=== PATIENT | female | born 1965 | race Caucasian/White ===

== ENCOUNTER → 2020-08-09 13:36 | Outpatient (CLI) | payer BC, SELFPAY ==
--- NOTE | ~2020-08-09 | US_ITS ---
EXAMINATION: US venous doppler [facility] EXAM DATE: 08/09/2020 14:05 INDICATION: Left leg pain, swelling. TECHNIQUE: Multiple grayscale, color flow and Doppler images of the left lower extremity deep venous system were obtained and reviewed. There is no prior study for comparison. FINDINGS: The left common femoral, femoral and profunda veins demonstrate normal color flow, respirat ory variation, augmentation and compressibility. Compressibility, color flow confirmed within the le ft popliteal, posterior tibial, peroneal, and greater saphenous veins. IMPRESSION: 1. No left lower extremity deep venous thrombosis. Reviewed, dictated and finalized at location A.
== END ==
PROVIDERS: PCP Internal Medicine; Visit Provider Internal Medicine
DX: R60.0 Localized edema (principal)
CPT/HCPCS: 93971

== ENCOUNTER 2020-10-14 05:38 | Emergency (ER) | payer BC, SELFPAY ==
--- NOTE | ~2020-10-14 | XR_ITS ---
XR chest 1V portable 10/14/2020 06:34 Indication: Shortness of breath Procedure: AP portable chest Comparison: No prior studies for comparison. Findings: Heart size normal. No focal air space disease, pulmonary edema, pleural effusion or suspect ed pneumothorax. Impression: 1: No acute cardiopulmonary disease. Reviewed, dictated and finalized at location A. ICATIONS INTERN Impression: 1: No acute cardiopulmonary disease.
[2020-10-14 05:43] VITALS: BP 114/80; PULSE 100; RESP 20; TEMP 36.3; O2SAT 98
--- NOTE | 2020-10-14 06:10 | ED.GENADULT ---
HPI - General Adult General Chief complaint: Unspecified Stated complaint: possible pneumonia & kidney stone, covid + Time Seen by Provider: 10/14/20 05:58 History of Present Illness HPI narrative: Tested positive for covid-19 1 week ago and she does nt feel any better. Earnest has a cough, and feels short of breath. She also has back pain, which seems to be chronic, but is worse. She has some pain with urination. Related Data Home Medications Medication Instructions Recorded Confirmed levothyroxine [Synthroid] 10/14/20 lorazepam 10/14/20 Allergies Allergy/AdvReac Type Severity Reaction Status Date / Time No Known Allergies Allergy Verified 10/14/20 06:37 Review of Systems Review of Systems: All systems reviewed & are unremarkable except as noted in HPI and below Constitutional: Constitutional: Reports body ache(s) and Reports chills Cardiovascular: Cardiovascular: Reports chest pain Respiratory: Respiratory: Reports cough and Reports dyspnea Gastrointestinal: Gastrointestinal: Reports nausea Genitourinary: Genitourinary: Denies hematuria, Reports nocturia and Reports dysuria Musculoskeletal: Musculoskeletal: Reports back pain Neurologic: Reports dizziness PMFSH Past Medical History Medical History (Updated 10/14/20 @ 06:56 by Ramez Hardy MD) COVID-19 Hypothyroid Social History Social History (Updated 10/14/20 @ 06:19 by Ramez Hardy MD) Smoking status: Never smoker Exam Const: General: healthy appearing, alert and awake; No acute distress Nutritional Appearance: well nourished Orientation/consciousness: patient oriented x3 Limitations: no limitations HENMT: Head: normal to inspection Neck: Neck: normal visual inspection Resp: Effort & Inspection: normal respiratory effort and able to speak in complete sentences Skin: General skin exam: normal color Neuro: General: patient oriented x3 Cognition (Neuro): normal cognition Speech: normal speech Gait exam (Neuro): Normal gait present Extrem: General: normal to inspection Psych: Affect: Anxious affect present Course Vital Signs Vital signs: Vital Signs Temperature 36.3 C L 10/14/20 05:43 Pulse Rate 100 10/14/20 05:43 Respiratory Rate 20 10/14/20 05:43 Blood Pressure 114/80 10/14/20 05:43 Pulse Oximetry 98 10/14/20 05:43 Temperature 36.3 C L 12/06/20 05:43 Pulse Rate 100 10/14/20 05:43 Respiratory Rate 20 10/14/20 05:43 Blood Pressure 114/80 10/14/20 05:43 Pulse Oximetry 98 10/14/20 05:43 Medical Decision Making MDM Narrative Medical decision making narrative: She appears well and seems to have very mild symptoms. I will do a chest x-ray, UA, and give toradol Vital Signs Vital Signs: Vital Signs Temperature 36.3 C L 10/14/20 05:43 Pulse Rate 100 10/14/20 05:43 Respiratory Rate 20 10/14/20 05:43 Blood Pressure 114/80 10/14/20 05:43 Pulse Oximetry 98 10/14/20 05:43 Temperature 36.3 C L 10/14/20 05:43 Pulse Rate 100 10/14/20 05:43 Respiratory Rate 20 10/14/20 05:43 Blood Pressure 114/80 10/14/20 05:43 Pulse Oximetry 98 10/14/20 05:43 Lab Data Labs: Lab Results 10/14/20 Range/Units 06:27 Urine Color Yellow (Yellow) Urine Appearance Clear (Clear) Urine pH 5.0 (5.0-9.0) Ur Specific [place] 1.018 (1.001-1.035) Urine Protein Negative (Negative) mg/dL Urine Glucose (UA) Negative (Negative) mg/dL Urine Ketones Negative (Negative) mg/dL Ur Blood (Man) Negative (Negative) Urine Nitrate Negative (Negative) Urine Bilirubin Negative (Negative) Urine Urobilinogen Negative (<2.0) mg/dL Leukocyte Esterase Rfl Negative (Negative) LYNNE/UL Urine RBC 3-5 H (0-2) /hpf Urine WBC 16-20 H /hpf Ur Squamous Epith Cells Occasional (Few) /hpf Urine Mucus Moderate H /lpf Urine Characteristics Clear Discharge Plan Discharge
[2020-10-14] MEDS: KETOROLAC (*BKC) 60 MG/2 ML VIAL IM (06:21)
[2020-10-14 06:37] LABS: Add Urine Microscopic? YES; Appearance Urine Clear (Clear); Bilirubin Urine Negative (Negative); Color Urine Yellow (Yellow); Glucose Urine UA Negative (Negative); Ketones Urine Negative (Negative); Leukocyte Esterase Ur Negative LEU/UL (Negative); Mucus Urine Moderate /lpf; Nitrate Urine Negative (Negative); Protein Urine Negative (Negative); Specific Grav Ur 1.018 (1.001-1.035); Squamous Epithelial Cell Urine Occasional /hpf (Few); Urobilinogen Urine Negative mg/dL (<2.0); WBC Urine 16-20 /hpf
[2020-10-14 06:44] LABS: Blood Urine Negative (Negative)
[2020-10-14] MEDS: PHENAZOPYRIDINE HCL 100 MG TABLET 200 MG PO (06:56)
[2020-10-14] MEDS: NITROFURANTOIN MONOHYD MACROCR 100 MG CAP PO (06:56)
[2020-10-14] MEDS: DEXAMETHASONE 2 MG TABLET 6 MG PO (07:07)
== END 2020-10-14 07:08 | disposition home or self-care (01) ==
PROVIDERS: Emergency Provider Emergency Medicine; PCP Internal Medicine
DX: U07.1 COVID-19 (principal); J12.89 Other viral pneumonia; N30.00 Acute cystitis without hematuria; E03.9 Hypothyroidism, unspecified
CPT/HCPCS: 71045; 81001; 87077; 87086; 87088; 87186; 96372; 99283; A9270; J1885; J8540

== ENCOUNTER 2024-06-14 05:52 | Day surgery (SDC) | payer OTHER, SELFPAY ==
[2024-03-29 11:35] VITALS: BMI 34.8
[2024-06-07 12:12] VITALS: BMI 31.8
--- NOTE | 2024-06-07 12:46 | PM.HPGS ---
History of Present Illness History of Present Illness Consent: Risks, benefits, and alternatives have been discussed and questions answered. Patient agrees to proceed with procedure. Chief complaint: History of colon polyps Narrative: Meeta Das is a 58 year old female Referred for Colonoscopy due to a history of polyps. She had an adenoma removed 6 years ago. Review of Systems Review of Systems: All systems reviewed & are unremarkable except as noted in HPI and below PMFSH Past Medical History Medical History COVID-19 Hypothyroid Social History Social History Smoking status: Never smoker Alcohol intake: current Substance use: never Substance use type: does not use Living arrangements: with family Spiritual care concerns: No Meds Home Medications and Allergies Home Medications Medication Instructions Recorded Confirmed Type levothyroxine 112 mcg tablet 112 mcg PO DAILY 10/14/20 06/14/24 History (Synthroid) Allergies Allergy/AdvReac Type Severity Reaction Status Date / Time No Known Allergies Allergy Verified 06/14/24 06:15 Exam Const: General: alert Orientation/consciousness: patient oriented x3 Resp: Auscultation: clear to auscultation bilaterally Cardio: Rate: regular rate Rhythm: regular rhythm GI: GI Palp: Yes Soft to palpation and No Tenderness to palpation present (GI) Neuro: General: patient oriented x3 Assessment and Plan Assessment and plan (1) Personal history of colonic polyps: Code(s): Z86.010 - Personal history of colonic polyps Status: Acute Assessment and Plan: Colonoscopy with possible biopsy or polypectomy or cautery or injection of substances.
--- NOTE | 2024-06-13 16:42 | P.PNAN_ITS ---
Anes - Initial Pre Proc Eval Procedure: Operation Date: 06/14/24 07:30 Proposed Procedures p Diagnostic Colonoscopy - Alessio Irvin MD Date/Time: 06/13/24 16:42 Surgeon: Alessio Irvin MD Pre Op Diagnosis: History of colon polyps Patient Data Age: 58 Gender: F Height: 1.73 m Weight: 95 kg Allergies Allergy/AdvReac Type Severity Reaction Status Date / Time No Known Allergies Allergy Verified 06/14/24 06:15 Home Medications Medication Instructions Recorded Confirmed Type levothyroxine 112 mcg tablet 112 mcg PO DAILY 10/14/20 06/14/24 History (Synthroid) Patient hx anesthesia problems: none Family hx anesthesia problems: none Results Review: All pre-operative results and documents have been reviewed as part of the pre- operative evaluation. [facility] Past Medical History Medical History (Updated 06/07/24 @ 12:47 by Alessio Irvin MD) COVID-19 Hypothyroid Social History Social History (Updated 10/14/20 @ 06:19 by Ramez Hardy MD) Smoking status: Never smoker Alcohol intake: current Substance use: never Substance use type: does not use Living arrangements: with family Spiritual care concerns: No Anes - Eval Final PreProcedure Day of Procedure 06/13/24 16:42 Patient weight: obese Heart: regular rate and rhythm Lungs: clear to auscultation Airway: Mallampati scale class II Neurological: alert and oriented Last oral intake: >/= 8 hours ASA classification: II Emergent: no Anesthetic plan: proceed Anesthesia type and monitoring: general GIVS and standard monitoring Results Review: All pre-operative results and documents have been reviewed as part of the pre- operative evaluation. Informed Consent: The patient's anesthetic plan and its attendant risks and benefits were discussed with the patient/family/POA. Questions were solicited and answers provided to the satisfaction of the patient/family/POA.
[2024-06-14 06:16] VITALS: BP 115/70; PULSE 72; RESP 15; TEMP 36.6; O2SAT 97
[2024-06-14] MEDS: LACTATED RINGERS 1,000 ML 150 ML IV CONT (06:19)
[2024-06-14 07:36] VITALS: BP 100/59; PULSE 63; RESP 16; O2SAT 98
[2024-06-14 07:46] VITALS: BP 111/69; PULSE 53; RESP 15; O2SAT 97
[2024-06-14 07:56] VITALS: BP 124/70; PULSE 55; RESP 15; O2SAT 100
--- NOTE | 2024-06-14 11:10 | WPDANESPN ---
Anes - Prog Note Post-Op Date/Time: 06/14/24 11:10 Cardiovascular status: normal Respiratory status: normal Airway patency: baseline Mental status: baseline Post-Op hydration status: normal Vital Signs: Last Vital Signs Temp 36.6 C 06/14/24 06:16 Pulse 55 L 06/14/24 07:56 Resp 15 06/14/24 07:56 BP 124/70 06/14/24 07:56 Pulse Ox 100 06/14/24 07:56 O2 Del Method Room Air 06/14/24 07:56 Pain Score (VAS): 0 I/O: Intake & Output 06/13/24 06/14/24 06/14/24 23:59 07:59 15:59 Intake Total 800 Balance 800 Post-procedural complaints: none Patient Feedback: Patient satisfied with anesthetic care. Other Findings: Patient vital signs back to baseline. Patient denies nausea and vomiting. Patient's pain under control. Patient OK for discharge.
== END 2024-06-14 08:12 | disposition home or self-care (01) ==
PROVIDERS: PCP Internal Medicine; Visit Provider Internal Medicine Gastroenterology
PROC: 0DJD8ZZ Inspection of Lower Intestinal Tract, Via Natural or Artificial Opening Endoscopic (ICD-10-PCS; CPT 45378; principal; 2024-06-14 07:30)
DX: Z86.010 Personal history of colon polyps (principal); Z12.11 Encounter for screening for malignant neoplasm of colon
CPT/HCPCS: 45378

== ENCOUNTER 2024-10-22 11:51 | Emergency (ER) | payer OTHER, SELFPAY ==
[2024-10-22 12:12] VITALS: BP 135/81; PULSE 63; RESP 20; TEMP 36.2; O2SAT 100
--- NOTE | 2024-10-22 12:20 | ED.GENADULT ---
HPI - General Adult General Chief complaint: Upper Respiratory Infection Stated complaint: sore throat Time Seen by Provider: 10/22/24 12:20 Source: patient Mode of arrival: ambulatory History of Present Illness HPI narrative: 59-year-old female patient presents to the [facility] with complaints of a sore throat for the past 2-3 days. Patient states she has had some cough and congestion symptoms for the past week. Patient states she has tried [id number] Mucinex and cough syrup for symptoms. Denies fevers, body aches or chills. Denies any ear pain. Denies any chest pain or shortness of breath. Related Data Home Medications ?Medication ?Instructions ?Recorded ?Confirmed ?Last Taken ?Type levothyroxine 112 mcg tablet 112 mcg PO DAILY 10/14/20 06/14/24 06/14/24 04:30 History (Synthroid) Allergies Allergy/AdvReac Type Severity Reaction Status Date / Time No Known Allergies Allergy Verified 06/14/24 06:15 Review of Systems Review of Systems: CONSTITUTIONAL: Denies fever, chills, or sweats. EYES: Denies visual changes, redness, or discharge. ENT: Denies rhinorrhea, congestion, sore throat, or otalgia. CARDIOVASCULAR: Denies chest pain, palpitations, or edema. RESPIRATORY: Denies cough or dyspnea. GASTROINTESTINAL: Denies abdominal pain, nausea, vomiting, or diarrhea. GENITOURINARY: Denies dysuria or hematuria. SKIN: Denies rash or itching. MUSCULOSKELETAL: Denies back pain, joint pain, or myalgia. NEUROLOGIC: Denies headache, numbness, or weakness. PSYCHIATRIC: Denies anxiety or depression. [facility] Past Medical History Medical History Hypothyroid COVID-19 Social History Social History Smoking status: Never smoker Alcohol intake: current Substance use: never Substance use type: does not use Living arrangements: with family Spiritual care concerns: No Comments At the time of my signature I agree with nursing past medical history, surgical, social, and family history. There is no relevant family history pertinent to the presenting complaint. Exam Narrative: GENERAL: Well-appearing, well-nourished, and in no acute distress. HEAD: Normocephalic, atraumatic. EYES: PERRLA and EOMI. ENT: Nares With erythema edema noted bilaterally, no rhinorrhea or epistaxis. Mucous membranes moist. posterior pharynx with no erythema, tonsillar enlargement, exudates or lesions present. Bilateral TMs are clear no erythema or foreign bodies the canal. NECK: Supple. No lymphadenopathy CHEST: Clear to auscultation. No respiratory distress. HEART: Regular rate and rhythm. No murmur heard. Normal peripheral pulses. ABDOMEN: Soft, nontender, nondistended, normal active bowel sounds. EXTREMITIES: Normal range of motion. No edema. SKIN: Warm, dry, no rash. NEURO: No focal deficits. Alert and oriented x3. Course Course Level of Care: Express Care Visit Vital Signs Vital signs: Vital Signs Temperature 36.2 C L 10/22/24 12:12 Pulse Rate 63 10/22/24 12:12 Respiratory Rate 20 10/22/24 12:12 Blood Pressure 135/81 10/22/24 12:12 Pulse Oximetry 100 10/22/24 12:12 Oxygen Delivery Room Air 10/22/24 12:12 Temperature 36.2 C L 10/22/24 12:12 Pulse Rate 63 10/22/24 12:12 Respiratory Rate 20 10/22/24 12:12 Blood Pressure 135/81 10/22/24 12:12 Pulse Oximetry 100 10/22/24 12:12 Oxygen Delivery Room Air 10/22/24 12:12 Vital signs reviewed. Medical Decision Making MDM Narrative Medical decision making narrative: Plan of care patient is to stop her today for strep if this is negative will encourage her to continue to treat symptoms with [id number] medication, saltwater gargles, tea and honey to help alleviate pain. We will send off a culture if the culture does come back positive we will call her antibiotics at that time. Patient is aware of the plan of care at this time. Differential Diagnosis Differential Diagnosis: Differential diagnosis: Viral pharyngitis, pharyngitis, group A strep, infectious mononucleosis, gonococcal pharyngitis, exudative pharyngitis, oral candidiasis. Chronic allergies, postnasal drip, GERD, abscess formation, but glottitis, retropharyngeal abscess formation, or airway obstruction. Vital Signs Vital Signs: Vital Signs Temperature 36.2 C L 10/22/24 12:12 Pulse Rate 63 10/22/24 12:12 Respiratory Rate 20 10/22/24 12:12 Blood Pressure 135/81 10/22/24 12:12 Pulse Oximetry 100 10/22/24 12:12 Oxygen Delivery Room Air 10/22/24 12:12 Temperature 36.2 C L 10/22/24 12:12 Pulse Rate 63 10/22/24 12:12 Respiratory Rate 20 10/22/24 12:12 Blood Pressure 135/81 10/22/24 12:12 Pulse Oximetry 100 10/22/24 12:12 Oxygen Delivery Room Air 10/22/24 12:12 Critical Care Time Critical Care Time Critical Care Time: No Discharge Plan Discharge Clinical Impression: Viral URI Pharyngitis Qualifiers: Pharyngitis/tonsillitis etiology: unspecified etiology Qualified Code(s): J02.9 - Acute pharyngitis, unspecified Patient Disposition: Home, Self-Care Condition: Stable Instructions: Antibiotic Form, Pharyngitis (ED) Additional Instructions: A sore throat can be caused by an infection from a virus or bacteria. Sore throat can also be caused by postnasal drip, allergies, and exposure to smoke. A viral sore throat last 3-4 days and cannot be treated with antibiotics. One type of sore throat virus, infectious mononucleosis ( mono ), can last for 3 weeks and older children. The germs that cause these infections are contagious and can be spread by coughing or sharing drinks or utensils. Contact her primary care physician or go to the ER if: Your trouble breathing or swallowing because her throat is swollen or sore. You're drooling because it hurts too much to swallow. You're painful lump in your throat go away after 5 days. You're fever is higher than 10 2??F or last longer than 3 days. You have confusion. You are blood in your throat. You're sore throat should feel better within 3-5 days without treatment if it is caused by virus. You may need the following: Ibuprofen or Tylenol as needed for pain or fever Gargle warm salt water Drink more liquids, cold or warm drinks may help soothe her throat. Humidifier in your room. Cough drops, ice, soft foods, or popsicles may help soothe her throat. A spoonful of honey could help with inflammation and soothe her throat. Wash her hands with soap and water, do not share food or drinks, throat away her toothbrush after 72 hours. Patient Language: Japanese Prescriptions: No Action levothyroxine [Synthroid] 112 mcg tablet 112 mcg PO DAILY Follow-up/Referrals: Ramesh,Jefferson Martin MD [Primary Care Provider] - Time of Disposition: 12:41
[2024-10-22 12:53] LABS: EDSTREPNEGPOS1 Negative (Negative)
--- OUTSIDE RECORDS SUMMARY | 2024-10-26 11:28 | XMS_ITS | Data Portability ---
Author Organization [place] [facility] [employer] [facility], Main Office Address [address] [place] [address] Care Team Providers Care Social Media Marketing Manager Name Role Phone JOHN CHANDLER Primary Care Provider JOHN CHANDLER Referring Provider Assessment Encounter Date Assessment Date Assessment LastModified by Organization Details LastModified Time 03/28/2024 03/28/2024 The patient has mild to moderate primary osteoarthritis of the right knee joint she has a lot of subpatellar crepitation with radiating pain to the posterior knee she also has significant narrowing of the medial compartment. We talked about the fact that her pain appears to be from osteoarthritis particularly patellofemoral articulation. We talked about treatment options today in detail we are going to start with a course of oral prednisone she will hold on the leave then resume that. She will modify her activities as tolerated. She was offered a shot of cortisone she wanted proceed therefore under sterile conditions I injected the patient's right knee joint in the office with 4 cc 0.5% bupivacaine and 20 mg of Kenalog. Patient tolerated the procedure well. I will see her back in 6 weeks if her symptoms continue we may consider doing gel shots we will see how she does with simple measures 1st. She voiced understanding agrees above plan she will call for any further problems difficulties or questions. We did review her new x-rays today in detail she does have lateral patellar tilt with overload of the lateral facet and moderate narrowing in the medial compartment of the right knee. Not available 03/28/2024 11:22:23 04/01/2024 04/01/2024 The patient has [id number] primary osteoarthritis both knees. She got excellent relief from an evaluation and a cortisone injection a few days ago for her right knee. She was so pleased she decided to come back to have her left knee injected her right knee had been hurting more than the left she was more focused on the right at that time. At her request under sterile conditions I injected the patient's left knee joint in the office today with 4 cc 0.5% bupivacaine and 20 mg of Kenalog. Patient tolerated procedure well. She will finish out her course of oral prednisone that was prescribed previously I will see her back as needed she voiced understanding agrees above plan she will call for any further problems difficulties or questions. Not available 04/01/2024 14:20:34 05/09/2024 05/09/2024 The patient has mostly resolved bilateral knee pain due to primary osteoarthritis. This is mostly localized to the patellofemoral articulations bilaterally. We talked about avoiding repetitive stairs squatting kneeling etc. anything that puts a heavy load in the back of the kneecap on either knee. If her knee pain flares up again she does have naproxen at home she can take this on a regular basis she stopped taking it because her knees are feeling so good. I will see her back as needed we can do shots of cortisone every 3 months if necessary. She voiced understanding and agrees above plan I will see her back if her knees flare up again she will call for any further problems difficulties or questions. Not available 05/09/2024 10:33:58 07/04/2024 07/04/2024 The patient has moderate primary osteoarthritis both knees particularly in the patellofemoral articulations we talked about treatment options in detail today she wanted proceed with a cortisone and we will switch her to Celebrex 200 mg daily after further discussion. Under sterile conditions I injected both knee joints in the office today with 4 cc 0.5% bupivacaine and 20 mg of Kenalog each. The patient tolerated the procedures well. I will see her back in 3 months if necessary we talked about the possibility of gel shots she is going to think about it she will let us know what she wants to do next time. She voiced understanding and agrees above plan. Not available 07/04/2024 09:12:59 10/10/2024 10/10/2024 The patient has moderately severe primary osteoarthritis particularly in the patellofemoral articulations of both knees we talked about treatment options today we are going to change her medication from Celebrex to Voltaren 75 mg b.i.d. with food see if that helps more. We spent a lot of time today talking about options for her short of knee replacement her x-rays do not show severe osteoarthritis and she is only 59 years old, we talked about formal physical therapy she declined she would rather do a home program she was given exercise sheets for this today. We also talked about knee braces she does have those with the patellar guide brace type braces. We also discussed the possibility of gel shots versus cortisone today she would rather do cortisone once again therefore under sterile conditions I injected the patient's bilateral knee joints in the office with 4 cc 0.5% bupivacaine and 20 mg of Kenalog. Patient tolerated procedures well. I will see her back again in 3 months if necessary. She voiced understanding and agreed with the above plan she will call for any further problems difficulties or questions. We also did talk about weight loss being important currently she is 5 ft 8 in tall 215 lb she knows that if she did lose some weight this would help somewhat with her knee pain particularly with trying to go up and down stairs. Not available 10/10/2024 09:39:05 Plan of Treatment Reminders Order Date Submit Date Provider Last Modified By Organization Details Last Modified Time Details Appointments Any 5 2024 08:00A MARIAM Galan Not available Not available Not available Lab None recorded. Referral None recorded. Procedures injection /aspirati on joint/bur sa (PROC) 2023 024 [email or web address] In-Office Order, Internal Use Only DO Not Attach Compendium DO Not Attach Compendium, Do Not Delete/merge, [id number] 03/28/2024 11:16:28 injection /aspirati on joint/bur sa (PROC) 2023 024 [email or web address] In-Office Order, Internal Use Only DO Not Attach Compendium DO Not Attach Compendium, Do Not Delete/merge, [id number] 04/01/2024 13:54:54 injection /aspirati on joint/bur sa (PROC) 2023 024 [email or web address] In-Office Order, Internal Use Only DO Not Attach Compendium DO Not Attach Compendium, Do Not Delete/merge, [id number] 07/04/2024 08:55:41 injection /aspirati on joint/bur sa (PROC) 2023 024 [email or web address] In-Office Order, Internal Use Only DO Not Attach Compendium DO Not Attach Compendium, Do Not Delete/merge, [id number] 10/10/2024 09:07:13 Surgeries None recorded. Imaging XR, knee 2023 024 [email or web address], [address], [place], [address], 03/28/2024 12:59:18 Medication Orders bupivacai ne HCl 0.5 % (5 mg/mL) injection solution 2023 024 [id number], [address], [address], 03/28/2024 12:59:18 Kenalog 10 mg/mL suspensio n for injection 2023 024 [id number], [address] [place] [address], [address], 03/28/2024 12:59:18 prednison e 10 mg tablets in a dose pack 2023 024 [id number], [address], [address], 03/28/2024 12:59:18 bupivacai ne HCl 0.5 % (5 mg/mL) injection solution 2023 024 [id number], [address] [place] [address], [address], 04/01/2024 16:12:34 Kenalog 10 mg/mL suspensio n for injection 2023 024 [id number], [address] [place] [address], [address], 04/01/2024 16:12:34 bupivacai ne HCl 0.5 % (5 mg/mL) injection solution [address] [id number], [address] [place] [address], [address], 07/04/2024 08:56:30 Kenalog 10 mg/mL suspensio n for injection 2023 024 [id number], [address] [place] [address], [address], 07/04/2024 08:56:30 celecoxib 200 mg capsule [address] [id number], [address] [place] [address], [address], 07/04/2024 09:31:31 bupivacai ne HCl 0.5 % (5 mg/mL) injection solution 2023 024 [email or web address] [id number], [address] [place] [address], [address], 10/10/2024 09:45:35 Kenalog 10 mg/mL suspensio n for injection 2023 024 [email or web address], [address], [address], 10/10/2024 09:45:35 diclofena c sodium 75 mg tablet,de layed release 2023 024 [id number], [address], [address], 10/10/2024 09:45:35 Patient TargetsNo targets recorded. Patient InstructionsNo instructions recorded. Reason for Referral None Reported. Results Created Date Observation Date Name Description Value Unit Range Abnormal Flag Note LastModifiedBy Organization Detail LastModifiedTime 03/10/20 24 03/10/2024 T4 FREE free T4 0.99 NG/dL 0.78-2 .19 Not Available [facility] (Lab) [address] [place], [address], 03/10/2024 18:37:49 03/10/20 24 03/10/2024 CBC/C OMPLE TE BLD COUNT W/DIF F white blood cells 3.3 x10'3 /uL 4.2-10 .8 low Not Available [facility] (Lab) [address] [place], [address], 03/10/2024 18:16:31 03/10/20 24 03/10/2024 CBC/C OMPLE TE BLD COUNT W/DIF F red blood cells 4.29 x10'6 /uL 3.80-5 .20 Not Available [facility] (Lab) [address] [place], [address], 03/10/2024 18:16:31 03/10/20 24 03/10/2024 CBC/C OMPLE TE BLD COUNT W/DIF F hemoglobin 13.2 g/dL 12.0-1 5.6 Not Available [facility] (Lab) [address] [place], [address], 03/10/2024 18:16:31 03/10/20 24 03/10/2024 CBC/C OMPLE TE BLD COUNT W/DIF F hematocrit 37.5 % 35.7-4 5.7 Not Available [facility] (Lab) [address] [place], [address], 03/10/2024 18:16:31 03/10/20 24 03/10/2024 CBC/C OMPLE TE BLD COUNT W/DIF F mean red cell volume 87.4 fL 82.0-9 9.0 Not Available [facility] (Lab) [address] [place], [address], 03/10/2024 18:16:31 03/10/20 24 03/10/2024 CBC/C OMPLE TE BLD COUNT W/DIF F mean red cell hemoglobin 30.8 pg 27.0-3 3.0 Not Available [facility] (Lab) [address] [place], [address], 03/10/2024 18:16:31 03/10/20 24 03/10/2024 CBC/C OMPLE TE BLD COUNT W/DIF F mean RBC HGB concentratio n 35.2 g/dL 31.0-3 6.0 Not Available [facility] (Lab) [address] [place], [address], 03/10/2024 18:16:31 03/10/20 24 03/10/2024 CBC/C OMPLE TE BLD COUNT W/DIF F red cell distribution width 12.4 % 11.8-1 5.5 Not Available [facility] (Lab) [address] [place], [address], 03/10/2024 18:16:31 03/10/20 24 03/10/2024 CBC/C OMPLE TE BLD COUNT W/DIF F platelets 123 x10'3 /uL 150-40 0 low Not Available [facility] (Lab) [address] [place], [address], 03/10/2024 18:16:31 03/10/20 24 03/10/2024 CBC/C OMPLE TE BLD COUNT W/DIF F mean platelet volume 9.6 fL 9.0-12 .4 Not Available [facility] (Lab) [address] [place], [address], 03/10/2024 18:16:31 03/10/20 24 03/10/2024 CBC/C OMPLE TE BLD COUNT W/DIF F neutrophils 48.6 % 39.0-7 2.0 Not Available [facility] (Lab) [address] [place], [address], 03/10/2024 18:16:31 03/10/20 24 03/10/2024 CBC/C OMPLE TE BLD COUNT W/DIF F lymphocytes 34.3 % 16.0-4 7.0 Not Available [facility] (Lab) [address] [place], [address], 03/10/2024 18:16:31 03/10/20 24 03/10/2024 CBC/C OMPLE TE BLD COUNT W/DIF F monocytes 10.5 % 5.0-12 .0 Not Available [facility] (Lab) [address] [place], [address], 03/10/2024 18:16:31 03/10/20 24 03/10/2024 CBC/C OMPLE TE BLD COUNT W/DIF F eosinophils 4.8 % 1.0-7. 0 Not Available [facility] (Lab) [address] [place], [address], 03/10/2024 18:16:31 03/10/20 24 03/10/2024 CBC/C OMPLE TE BLD COUNT W/DIF F basophils 1.5 % 0.0-2. 0 Not Available [facility] (Lab) [address] [place], [address], 03/10/2024 18:16:31 03/10/20 24 03/10/2024 CBC/C OMPLE TE BLD COUNT W/DIF F immature granulocytes 0.3 % 0.00-0 .50 Not Available [facility] (Lab) [address] [place], [address], 03/10/2024 18:16:31 03/10/20 24 03/10/2024 CBC/C OMPLE TE BLD COUNT W/DIF F neutrophils, absolute count 1.61 x10'3 /uL 1.5-8. 0 Not Available [facility] (Lab) [address] [place], [address], 03/10/2024 18:16:31 03/10/20 24 03/10/2024 CBC/C OMPLE TE BLD COUNT W/DIF F lymphocytes, absolute count 1.14 x10'3 /uL 1.07-3 .43 Not Available [facility] (Lab) [address] [place], [address], 03/10/2024 18:16:31 03/10/20 24 03/10/2024 CBC/C OMPLE TE BLD COUNT W/DIF F monocytes, absolute count 0.35 x10'3 /uL 0.29-0 .99 Not Available [facility] (Lab) [address] [place], [address], 03/10/2024 18:16:31 03/10/20 24 03/10/2024 CBC/C OMPLE TE BLD COUNT W/DIF F eosinophils, absolute count 0.16 x10'3 /uL 0.02-0 .53 Not Available [facility] (Lab) [address] [place], [address], 03/10/2024 18:16:31 03/10/20 24 03/10/2024 CBC/C OMPLE TE BLD COUNT W/DIF F basophils, absolute count 0.05 x10'3 /uL 0.01-0 .08 Not Available [facility] (Lab) [address] [place], [address], 03/10/2024 18:16:31 03/10/20 24 03/10/2024 CBC/C OMPLE TE BLD COUNT W/DIF F immature granulocytes ,absolute 0.01 x10'3 /uL 0.00-0 .05 Not Available [facility] (Lab) [address] [place], [address], 03/10/2024 18:16:31 03/10/20 24 03/10/2024 CBC/C OMPLE TE BLD COUNT W/DIF F nucleated red blood cells 0.0 % -0 Not Available [facility] (Lab) [address] [place], [address], 03/10/2024 18:16:31 03/10/20 24 03/10/2024 CBC/C OMPLE TE BLD COUNT W/DIF F NRBC# 0.00 x10'3 /uL Not Available [facility] (Lab) [address] [place], [address], 03/10/2024 18:16:31 03/10/20 24 03/10/2024 CREAT INE KINAS E/CPK TOTAL creatine kinase 118 U/L 30-135 Not Available [facility] (Lab) [address] [place], [address], 03/10/2024 18:24:21 03/10/20 24 03/10/2024 LIPID PANEL cholesterol 225 mg/dL 140-19 9 high NIH KISHAN NSUS RECOM MENDA TION FOR WANDA STERO L: ADULT CHILD LOW RISK: <200 <170 BORDE RLINE : <200- 239 ----- HIGH RISK: >240 >200 Not Available [facility] (Lab) [address] [place], [address], 03/10/2024 18:24:27 03/10/20 24 03/10/2024 LIPID PANEL triglyceride s 117 mg/dL 0-150 NIH KISHAN NSUS REPOR T RECOM MENDA TION FOR TRIGL YCERI KELLY: ADULT CHILD LOW RISK: <150 ----- BODER LINE: 150-1 99 ----- HIGH RISK: >200 ----- Not Available [facility] (Lab) [address] [place], [address], 03/10/2024 18:24:27 03/10/20 24 03/10/2024 LIPID PANEL HDL cholesterol 69 mg/dL 40- Not Available [facility] (Lab) [address] [place], [address], 03/10/2024 18:24:27 03/10/20 24 03/10/2024 LIPID PANEL LDL cholesterol, calculated 133 mg/dL 0-130 high NIH KISHAN NSUS REPOR T RECOM MENDA TIONS FOR LDL: ADULT CHILD LOW RISK <130 <110 (OPTI MAL LDL) <100 ----- BORDE RLINE : 130-1 59 ----- HIGH RISK: >160 >130 A TRIGL YCERI DE RESUL T >400 INVAL IDATE S THE CALCU LATIO N FOR LDL FRACT IONAT ION - THE LDL RESUL T WILL NOT BE REPOR HELLEN. Not Available [facility] (Lab) [address] [place], [address], 03/10/2024 18:24:27 03/10/20 24 03/10/2024 COMPR EHENS LOTTIE METAB OLIC PANEL sodium 136 mmol/ L 137-14 5 low Not Available [facility] (Lab) [address] [place], [address], 03/10/2024 18:24:32 03/10/20 24 03/10/2024 COMPR EHENS LOTTIE METAB OLIC PANEL potassium 4.6 mmol/ L 3.5-5. 1 Not Available [facility] (Lab) [address] [place], [address], 03/10/2024 18:24:32 03/10/20 24 03/10/2024 COMPR EHENS LOTTIE METAB OLIC PANEL chloride 107 mmol/ L 98-107 Not Available [facility] (Lab) [address] [place], [address], 03/10/2024 18:24:32 03/10/20 24 03/10/2024 COMPR EHENS LOTTIE METAB OLIC PANEL carbon dioxide 25 mmol/ L 22-30 Not Available [facility] (Lab) [address] [place], [address], 03/10/2024 18:24:32 03/10/20 24 03/10/2024 COMPR EHENS LOTTIE METAB OLIC PANEL anion gap 8.6 mmol/ L 14-22 low Not Available [facility] (Lab) [address] [place], [address], 03/10/2024 18:24:32 03/10/20 24 03/10/2024 COMPR EHENS LOTTIE METAB OLIC PANEL glucose 117 mg/dL 70-99 high Not Available [facility] (Lab) [address] [place], [address], 03/10/2024 18:24:32 03/10/20 24 03/10/2024 COMPR EHENS LOTTIE METAB OLIC PANEL BUN 15 mg/dL 8-19 Not Available [facility] (Lab) [address] [place], [address], 03/10/2024 18:24:32 03/10/20 24 03/10/2024 COMPR EHENS LOTTIE METAB OLIC PANEL creatinine 0.74 mg/dL 0.66-1 .25 Not Available [facility] (Lab) [address] [place], [address], 03/10/2024 18:24:32 03/10/20 24 03/10/2024 COMPR EHENS LOTTIE METAB OLIC PANEL GFR >60 Refer ence Range : [place] ge GFR Healt hy Adult : >60 mL/mi n/1.7 3 m2 Chron ic Kidne y Disea se: 15-60 mL/mi n/1.7 3 m2 Kidne y Failu re: <15/m L/min /1.73 m2 www.n iddk. nih.g ov The MDRD study equat ion has not been valid ated in child celeste <18 years of age; pregn ant women ; the elder ly >85 years of age; or in some racia l or ethni c subgr oups, such as Hispa nics. Outsi de the valid ated loan eters , estim ated GFR is less accur ate, requi ring clini maryann judgm ent on a case- by-ca se basis . Clini maryann inter preta tion for other races and ages must be made by the clini natalya. The MDRD study equat ion has not been valid ated for the evalu ation of serum creat inine relat ed to nutri tiffanie l statu s or medic ation usage . For perso ns <18 years of age, a pedia tric GFR calcu lator is avail able on the [facility] websi te: https ://ww w.kid el.o rg/pr ofess ional s/kdo qi/gf r_cal culat or Not Available [facility] (Lab) [address] [place], [address], 03/10/2024 18:24:32 03/10/20 24 03/10/2024 COMPR EHENS LOTTIE METAB OLIC PANEL alkaline phosphatase 61 U/L 38-[address] [facility] (Lab) [address] [place], [address], 03/10/2024 18:24:32 03/10/20 24 03/10/2024 COMPR EHENS LOTTIE METAB OLIC PANEL alanine aminotransfe rase 62 U/L 0-35 high Not Available [facility] (Lab) [address] [place], [address], 03/10/2024 18:24:32 03/10/20 24 03/10/2024 COMPR EHENS LOTTIE METAB OLIC PANEL aspartate aminotransfe rase 44 U/L 15-37 high Not Available [facility] (Lab) [address] [place], [address], 03/10/2024 18:24:32 03/10/20 24 03/10/2024 COMPR EHENS LOTTIE METAB OLIC PANEL bilirubin, total 0.80 mg/dL 0.20-1 .30 Not Available [facility] (Lab) [address] [place], [address], 03/10/2024 18:24:32 03/10/20 24 03/10/2024 COMPR EHENS LOTTIE METAB OLIC PANEL calcium 9.6 mg/dL 8.4-10 .2 Not Available [facility] (Lab) [address] [place], [address], 03/10/2024 18:24:32 03/10/20 24 03/10/2024 COMPR EHENS LOTTIE METAB OLIC PANEL total protein 6.7 g/dL 6.3-8. 2 Not Available [facility] (Lab) [address] [place], [address], 03/10/2024 18:24:32 03/10/20 24 03/10/2024 COMPR EHENS LOTTIE METAB OLIC PANEL albumin 4.6 g/dL 3.4-5. 0 Not Available [facility] (Lab) [address] [place], [address], 03/10/2024 18:24:32 03/10/20 24 03/10/2024 COMPR EHENS LOTTIE METAB OLIC PANEL globulin 2.1 g/dL 2.6-4. 2 low Not Available [facility] (Lab) [address] [place], [address], 03/10/2024 18:24:32 03/10/20 24 03/10/2024 COMPR EHENS LOTTIE METAB OLIC PANEL A/G ratio 2.2 ratio 1.0-2. 0 high Not Available [facility] (Lab) [address] [place], [address], 03/10/2024 18:24:32 03/10/20 24 03/10/2024 MAGNE SIUM magnesium 1.8 mg/dL 1.6-2. 3 Not Available [facility] (Lab) [address] [place], [address], 03/10/2024 18:24:36 03/10/20 24 03/10/2024 TSH thyroid-stim ulating hormone 1.470 uIU/m L 0.465- 4.680 Not Available [facility] (Lab) [address] [place], [address], 03/10/2024 18:52:09 03/10/20 24 03/14/2024 ALDOL ASE aldolase 5.7 U/L 3.3-10 .3 Perfo rmed at: - [facility] n [address] [facility], [place] [id number] Lab Direc tor: Jose benitez PhD, Phone : [phone] Not Available [facility] (Lab) [address] [place], [address], 03/14/2024 13:08:41 03/10/20 24 XR, knee, 3 view [facility] [address] [place] [address] Patien t Name: MEETA DAS ion #: [id number] Sex: F : 1964 9 Dictat ed By: Yuriy Anderson Attend ing Physic sue: REUBEN CHANDLER CE Orderi Physic sue: REUBEN CHANDLER CE Exam Date: 2023 14:01 PM Exam Name: XR KNEE RT 3V Admitt ing Diagno sis(es ): CLINIC AL INDICA TION: pain TECHNI QUE: 3 radiog raphic views of the right knee were obtain ed. Compar tabatha: None FINDIN GS/ IMPRES JHONNY: Diffus e sclero sis in the visual ized distal femur; nonspe cific. This can be furthe r evalua hellen with MRI withou t and with interv enous contra st if clinic ally indica hellen. There is no eviden ce of acute fractu re or disloc ation. The visual ized joint space is well mainta ined. The alignm ent is anatom ical. There is no radiop aque foreig n body. Electr onical ly Signed by: Yuriy Anderson at 2023 14:51: 27 PM Page 1 [email or web address] [facility] (Imaging) [address] [place], [address], 03/10/2024 16:22:23 03/28/20 24 XR, knee No observ ation record ed. [facility] [place] [address], [place], [address], 03/28/2024 11:25:55 Result Notes None recorded. Problems Name Problem SNOMED Code Status Onset Date Resolution Date Notes Provider Name and Address Organization Details Recorded Time Bilateral cramp of muscle of lower limbs 3989874412762 9107 Active 2021 Not Available [facility] 3 14:13:53 Senile osteoporos is 94494780 Active 2021 Not Available [facility] 3 14:13:53 Plantar fasciitis 272589371 Active Not Available [facility] 3 14:13:53 Restless legs 45340805 Active Not Available [facility] 3 14:13:53 Vitamin D deficiency 91198704 Active 2021 Not Available [facility] 3 14:13:53 Migraine 73200217 Active Not Available [facility] 3 14:13:53 Chronic sinusitis 73612847 Active Not Available [facility] 3 14:13:53 Hypothyroi dism 91420025 Active Not Available [facility] 3 14:13:53 Hyperlipid emia 18535882 Active 2020 Not Available [facility] 3 14:13:53 Fatigue 15546872 Active Not Available [facility] 3 14:13:54 Herniation of nucleus pulposus 42912236 Active Not Available [facility] 3 14:13:54 Obese class I 1780947941142 07 Active 2022 John Chandler MD [address], [place], [address] , [facility] 3 14:50:24 Acute urinary tract infection 148987310 Active 2022 John Chadnler MD [address], [place], [address] , [place] [facility] 3 17:02:14 Candidiasi s of [facility] 69952952 Active 2022 John Chandler MD [address], [place], [address] , [facility] 3 14:08:19 Pharyngiti s 609543749 Active 2023 John Chandler MD [address], [place], [address] , [facility] 4 11:22:33 Acute sinusitis 55983697 Active 2023 Rasheeda Freire CMA null, [place] [facility] 4 14:50:51 Pain of right knee joint 1007642957183 00 Active 2023 Suzanne Pierce null, [place] [facility] 4 14:53:51 Osteoarthr itis of right knee joint 5929998173366 00 Active 2023 MARIAM Montgomery [address], [place], [address] , [facility] 4 11:22:31 Pain of left knee joint 7011852320058 07 Active 2023 Lilian Clement CNA null, [place] [facility] 4 13:53:40 Bilateral osteoarthr itis of knees 5755039182907 07 Active 2023 MARIAM Montgomery [address], [place], [address] , [facility] 4 14:20:41 Motion sickness 87238426 Active 2023 John Chandler MD [address], [place], [address] , [facility] 4 11:44:04 Acute right otitis media 173424591 Active 2023 John Chandler MD [address], [place], [address] , [place] [facility] 16:00:01 Problem Notes None recorded. Procedures Surgical History None recorded. Imaging Results Imaging Date Name Status LastModified by Organiz ation Details LastModified Time 03/10/2024 XR, knee, 3 view completed [facility] (Imaging) [address], [place], [address], 03/10/2024 16:22:23 03/28/2024 XR, knee completed [facility] [address], [place], [address], 03/28/2024 11:25:55 Procedure Notes None recorded. Medical Equipment None Reported. Allergies No known drug allergies Medications Name Sig Start Date Stop Date Status Note LastModified by Organization Details LastModified Time celecoxib 200 mg capsule TAKE 1 CAPSULE BY MOUTH EVERY DAY active Not Available Not Available No t Available cyclobenz aprine 10 mg tablet TAKE 1 TABLET BY MOUTH 3 TIMES DAILY 01/20 completed Not Available Not Available Not Available amoxicill in 500 mg capsule TAKE 1 CAPSULE BY MOUTH EVERY 8 HOURS active Not Available Not Available No t Available Augmentin 875 mg-125 mg tablet Take 1 tablet every 12 hours by oral route. 01/20 completed Not Available Not Available Not Available prednison e 10 mg tablet PLEASE SEE ATTACHED FOR DETAILED DIRECTIO NS active Not Available Not Available No t Available fluconazo le 150 mg tablet TAKE 1 TABLET BY MOUTH EVERY DAY 03/10 completed Not Available Not Available Not Available benzonata te 200 mg capsule Take 1 capsule 3 times a day by oral route. active Not Available Not Available No t Available Lotrisone 1 %-0.05 % topical cream Apply by topical route twice daily 01/20 completed Not Available Not Available Not Available hydrocodo ne 5 mg-acetam inophen 325 mg tablet TAKE 1 TABLET BY MOUTH 4 TIMES A DAY NEEDED FOR PAIN 02/04 completed Not Available Not Available Not Available phenazopy ridine 200 mg tablet TAKE 1 TABLET BY MOUTH 3 TIMES A DAY NEEDED 02/04 completed Not Available Not Available Not Available bupivacai ne HCl 0.5 % (5 mg/mL) injection solution Take 40 mg by injectio n route. 2023 active Not Available Not Available Not Avai lable dexametha sone 6 mg tablet TAKE 1 TABLET BY MOUTH EVERY DAY 02/04 completed Not Available Not Available Not Available Zithromax Z-Troy 250 mg tablet Take 2 TABLET EVERY DAY by oral route for 1 day then one daily 01/01 completed Not Available Not Available Not Available sulfameth oxazole 800 mg-trimet hoprim 160 mg tablet TAKE 1 TABLET BY MOUTH EVERY 12 HOURS FOR 7 DAYS 03/10 completed Not Available Not Available Not Available prednison e 10 mg tablets in a dose pack Take 1 tab by mouth, 3 times a day for 3 daysTake 1 tab by mouth 2 times a day for 2 daysTake 1 tab by mouth once a day for 1 day 2023 active Not Available Not Available Not Avai lable levothyro xine 100 mcg tablet TAKE 1 TABLET DAILY 11/24 completed Not Available Not Available Not Available Sinemet 10 mg-100 mg tablet Take 1 tablet(s ) HS for restless leg syndrome 01/20 completed Not Available Not Available Not Available Kenalog 10 mg/mL suspensio n for injection Take 40 mg by injectio n route. 2023 active [facility]: [id number] 02-26 Not Available Not Available Not Available hydrocodo ne 7.5 mg-acetam inophen 325 mg tablet TAKE 1 TABLET BY MOUTH EVERY 4 HOURS NEEDED FOR PAIN active Not Available Not Available No t Available Cipro 500 mg tablet Take 1 tablet twice a day by oral route for 10 days. 08/07 completed Not Available Not Available Not Available diclofena c sodium 75 mg tablet,de layed release Take 1 tablet twice a day by oral route. active Not Available Not Available No t Available Levaquin 500 mg tablet Take 1 tablet every 24 hours by oral route. active Not Available Not Available No t Available lorazepam 1 mg tablet TAKE 1 TABLET BY MOUTH 3 TIMES A DAY. 03/06 completed Not Available Not Available Not Available estradiol 0.01% (0.1 mg/gram) vaginal cream INSERT 1G INTO THE VAGINA NIGHTLY FOR 2 WEEKS, THEN TWO TIMES A WEEK THEREAFT ER. 03/28 completed Not Available Not Available Not Available scopolami ne 1 mg over 3 days transderm al patch APPLY ONE PATCH BEHIND THE EAR EVERY 72 HOURS active Not Available Not Available No t Available methylpre dnisolone 4 mg tablets in a dose pack TAKE 6 TABLETS ON DAY 1 DIRECTED ON PACKAGE AND DECREASE BY 1 TAB EACH DAY FOR A TOTAL OF 6 DAYS 03/10 completed Not Available Not Available Not Available albuterol sulfate HFA 90 mcg/actua tion aerosol inhaler USE 2 PUFFS BY MOUTH 4 TIMES A DAY NEEDED active Not Available Not Available No t Available Lomotil 2.5 mg-0.025 mg tablet Take 1 tablet 4 times a day by oral route as needed. 01/16 completed Not Available Not Available Not Available cefdinir 300 mg capsule Take 1 capsule every 12 hours by oral route. 01/16 completed Not Available Not Available Not Available naproxen 500 mg tablet TAKE 1 TABLET BY MOUTH TWICE A DAY WITH FOOD 02/04 completed Not Available Not Available Not Available levothyro xine 112 mcg tablet TAKE 1 TABLET BY MOUTH EVERY DAY active Not Available Not Available No t Available eletripta n 40 mg tablet TAKE 1 TABLET BY MOUTH AT ONSET OF HEADACHE , MAY REPEAT IN 2 HOURS , (MAX OF 2 TAB/24 HOURS) active Not Available Not Available No t Available Premarin 0.625 mg/gram vaginal cream INSERT 1 GM VAGINALL Y NIGHTLY X 2WKS THEN, 2TIMES PER WEEK FOR MAINTENA NCE. 02/04 completed Not Available Not Available Not Available nitrofura ntoin monohydra te/macroc rystals 100 mg capsule TAKE 1 CAPSULE BY MOUTH EVERY 12 HOURS 05/29 completed Not Available Not Available Not Available lidocaine (PF) 10 mg/mL (1 %) injection solution In office injectio n administ ered by the provider 03/06 completed [facility]: [id number] 04-25 Not Available Not Available Not Available Monovisc 88 mg/4 mL intra-art icular syringe Injectio ns given in the office by the doctor 03/06 completed [facility]: [id number] 001 Not Available Not Available Not Available Uro-MP 118 mg-10 mg-40.8 mg-36 mg capsule TAKE 1 CAPSULE BY MOUTH EVERY 8 HOURS NEEDED (BLADDER PAIN) 03/06 completed Not Available Not Available Not Available Vitals Date Recorded Body height Body mass index (BMI) Body weight Provider Name and Address Organization Details Last Updated DateTime 03/28/2024 172.72 cm 33.5 kg/m2 33293.32 g Lizbeth Healy [employer] [facility] 03/28/2024 10:05:11 Date Recorded Body height Body mass index (BMI) Body weight Provider Name and Address Organization Details Last Updated DateTime 04/01/2024 172.72 cm 33.5 kg/m2 25480.32 shahnaz Clement [employer] [facility] 04/01/2024 13:53:12 Date Recorded Body height Body mass index (BMI) Body weight Provider Name and Address Organization Details Last Updated DateTime 05/09/2024 172.72 cm 32.7 kg/m2 75447.36 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[employer] [facility] 05/09/2024 09:48:38 Date Recorded Body height Body mass index (BMI) Body weight Provider Name and Address Organization Details Last Updated DateTime 07/04/2024 172.72 cm 31.9 kg/m2 77441.4 shahnaz Quintana Urbano, SHE[employer] [facility] 07/04/2024 08:53:19 Date Recorded Body height Provider Name an d Address Organization Details Last Updated DateTime 10/10/2024 172.72 cm Lizbeth Healy [employer] [facility] 10/10/2024 09:05:21 Social History Question Answer Notes LastModified by Organizat ion Details LastModified Time Tobacco Smoking Status Never Smoker Not Available [facility] 01/07/2023 14:11:02 What Was The Date Of Your Most Recent Tobacco Screening? 02/27/2021 [id number] Information not available 01/07/2023 Sex: Unknown Functional Status None recorded. Mental Status None recorded. Family History Relationship Description Onset Age of this Age Resolved Age Notes LastModified by Organization Details LastModified Time Father Family history of malignant neoplasm [id number] Not available 01/07/2023 14:11:14 Notes:Mother living at 77 [facility] Father living 72 from Non- Hodgkin's lymphoma One brother living with seizure disorder Two sisters living and in good health. Medical History Condition Response NERVE DISEASE N BLINDNESS N RHEUMATIC FEVER N KIDNEY STONES N BLADDER PROBLEMS N MRSA N CARPAL TUNNEL SYNDROME N OTHER # 1 N POLIO N LUNG DISEASE/DISORDER N HISTORY OF DRUG ABUSE N RADIATION / CHEMOTHERAPY N COPD N Other # 2 N BLOOD DISEASES N SURGERY N EAR OR HEARING PROBLEMS N MUMPS N SCHIZOPHRENIA N BOWEL PROBLEMS N DEPRESSION (INCLUDING POST ) N STROKE/TIA N ULCERS N BENIGN PROSTATIC HYPERPLASIA N MEASLES N MYOCARDIAL INFARCTION N OBESITY N GERD/NAUSEA N ANEURYSM N URINARY/BLADDER/KIDNEY PROBLEMS N CORONARY ARTERY DISEASE (CAD) N Do you have Advance directive? N ADDICTION CONCERNS N ENDOMETRIOSIS N Impotence N USE OF BLOOD THINNERS N SKIN PROBLEMS N EMPHYSEMA N GASTROINTESTINAL DISORDER N PERIPHERAL VASCULAR DISEASE N MUSCLE,JOINT OR BONE PROBLEMS N DVT N STOMACH ULCERS N GASTROINTESTINAL BLEEDING N Do you have a living will? N BLOOD CLOTS N ASTHMA N CATARACTS N USE OF NSAIDS N CONCUSSION OR SPINAL TRAUMA N ERECTILE DYSFUNCTION N VARICOSITIES N GI PROBLEMS N Low Testosterone N NEUROPATHY N INFERTILITY N AIDS/HIV N FRACTURES N CHEMOTHERAPY / RADIATION N LIVER DISEASE N MALE HYPOGONADISM N HYPERTENSION N Deficiency N ANXIETY DISORDER N Metal allergy N BLOOD TRANSFUSION N ANEMIA/BLOOD DISORDER N CHRONIC EAR INFECTIONS N BIPOLAR DISORDER N BRONCHITIS N OSTEOARTHRITIS N TUBERCULOSIS N GLAUCOMA N FOOT PROBLEM N HEART VALVE DISORDERS N DIVERTICULITIS N CHICKENPOX N SLEEP APNEA N ALLERGIES/HAYFEVER N INFECTIOUS DISEASE N HEART ARRHYTHMIA N PROSTATE N INSOMNIA N HIGH CHOLESTEROL / HYPERLIPIDEMIA N RHEUMATOID ARTHRITIS N EYE PROBLEMS N HYPERTHYROIDISM Y NEUROLOGICAL PROBLEMS N EDEMA N CHRONIC PAIN SYNDROME N HYPOTHYROIDISM N CAROTID BLOCKAGE N CONSTIPATION N BACK / NECK PROBLEMS N HAVE YOU BEEN HOSPITALIZED OR SEEN IN [facility] IN THE PAST YEAR ? N ATHEROSCLEROSIS N BURSITIS N BREAST PROBLEMS N HERNIATED DISC N DIALYSIS N ECZEMA N FIBROMYALGIA N OSTEOPOROSIS N ARTHRITIS N Do you have a healthcare POA? N NO SIGNIFICANT PAST MEDICAL HISTORY N PERIPHERAL NEUROPATHY N APPENDICITIS N DIABETES, TYPE N BAD TEETH N ENT N HEARTBURN / REFLUX N AUTISM SPECTRUM DISORDER (ASD) N HEPATITIS / LIVER DISEASE N GOUT N SLEEP DISORDER N ALZHEIMER'S DISEASE N Brain Problems N HERPES N DEMENTIA N HEADACHES/MIGRAINES N SEIZURES/EPILEPSY N VASCULAR DISEASE N PACEMAKER N Blood Disorder N DIZZINESS N HEAD TRAUMA OR INJURY N HEART DISEASE/HEART PROBLEMS N KIDNEY DISEASE N MULTIPLE SCLEROSIS N CARDIAC ARRHYTHMIA N CANCER: SPECIFY N ANESTHESIA COMPLICATIONS N ATRIAL FIBRILLATION N Gall Stones N PULMONARY EMBOLISM N AUTOIMMUNE DISEASE N Gynecological HistoryNo gynecological history recorded. Obstetrics History GPAL:G 0 P 0 0 0 0 Immunizations Vaccine Type Date Status Note Provider Nam e and Address Organization Details Recorded Time Influenza, split virus, quadrivalent, PF 11/23/2018 completed Not Available [facility] Td[facility] 11/23/2018 completed Not Available Critical [facility] hospital 01/07/2023 14:16:25 Past Encounters Encounter ID Performer Location Encounter Start Date Encounter Closed Date Diagnosis/Indication Diagnosis SNOMED-CT Code Diagnosis ICD10 Code [id number] [facility] [address] [facility] 24 [place] [address] 02/04/2021 00:00:00 02/04/2021 15:56:08 [id number] [facility] [address] [place] [address] 02/27/2021 00:00:00 02/27/2021 12:20:54 [id number] [facility] [address] [place] [address] 05/29/2021 00:00:00 05/30/2021 14:27:46 [id number] [facility] [address] [place] [address] 06/21/2021 00:00:00 06/21/2021 09:44:40 [id number] [facility] [address] [place] [address] [place] [place] [address] 02/28/2022 00:00:00 02/28/2022 14:44:29 [id number] John Chandler MD [facility] [address] [place] [address] [place] [address] 03/06/2023 14:32:19 03/06/2023 15:01:44 Adult health examination 849797471 Z00.00 Depression screening 171 982069 Z13.31 Hyperlipidemia 51037979 E78.5 Obese class I [id number] 78479 E66.9 [id number] John Chandler MD [facility] [address] [place] [address] [address] 03/10/2024 14:21:12 03/10/2024 17:22:48 Hypothyroidism 53817127 E03.9 Hyperlipidemia 77682192 E78.5 Bilateral cramp of muscle of lower limbs 4397453624 3880280 R25.2 Obese class I [id number] 39741 E66.9 [id number] Po Nascimento PA [facility] [address] [place] [address] 03/28/2024 09:44:27 03/28/2024 11:19:12 Pain of right knee joint 4806149001 95698 M25.561 Osteoarthr itis of right knee joint 3505309018 30721 M17.11 [id number] Po Nascimento PA [facility] [address] [place] [address] 04/01/2024 13:47:48 04/01/2024 14:23:51 Pain of left knee joint 4075927312 04648 M25.562 Bilateral osteoarthritis of knees 0818021519 40608 M17.0 [id number] AMRIAM Montgomery [facility] [address] [place] [address] 05/09/2024 09:36:44 05/09/2024 11:31:56 Bilateral osteoarthritis of knees 5182112441 02820 M17.0 [id number] MARIAM Montgomery [facility] [address] [place] [address] 07/04/2024 08:48:58 07/04/2024 09:11:44 Bilateral osteoarthritis of knees 1703419589 82577 M17.0 Pain of ri ght knee joint 9504373608 18292 M25.561 Pain of le ft knee joint 4215914551 70431 M25.776 [id number] Po Nascimento PA [facility] [address] [place] [address] 10/10/2024 09:03:09 10/10/2024 09:20:31 Bilateral osteoarthritis of knees 8144844507 30763 M17.0 Pain of ri ght knee joint 7391206390 41158 M25.561 Pain of le ft knee joint 9576645739 81873 M25.562 Health Concerns Section Related Observation LastModified by Organization Detai ls LastModified Time None Recorded Concern Status LastModified by Organization Details LastModified Time None Recorded Advance Directives Directive None Recorded Payers Encounter Date Sequence Insurance Name Policy Number Policy Ortiz Covered Member ID Ortiz Member ID Guarantor Name 03/28/2024 1 [employer] - CHOICE (POS II) [id number] Mike Swanson Pippa [id number] 2 Meeta Das 04/01/2024 1 [employer] - CHOICE (POS II) [id number] Mike Swanson Pippa [id number] 2 Meeta Das 05/09/2024 1 [employer] - CHOICE (POS II) [id number] Mike Swanson Pippa [id number] 2 Meeta Das 07/04/2024 1 [employer] - CHOICE (POS II) [id number] Mike Swanson Pippa [id number] 2 Meeta Das 10/10/2024 1 [employer] - CHOICE (POS II) [id number] Mike Swanson Pippa [id number] 2 Meeta Das Notes Date Note Type Note Provider Name and Address Organization Details Recorded Time 4 text/html patient is a 58-year-old female who presents with four-week history of right knee pain. She was doing some yd work doing lots of squatting kneeling in the yd states after that she noted that she started having some knee pain. This has been fairly persistent comes and goes lately she has been staying off of it resting it and now her pain is about a 2 on a scale of 1-10 previously was much worse. She also had noted some swelling in the knee but this has basically subsided as well. A lot of the pain is in the posterior knee she does note crepitation through the arc of motion in the subpatellar region. She has trouble squatting kneeling or going up and down stairs this causes more pain than anything. She has altered her gait to go up and down stairs. Denies any locking or catching does have some start-up pain and rest pain if her day has been very busy. She has been taking Aleve osiq-ajn-njmovid 2 pills twice a day which has helped somewhat as well. Despite conservative measures on her own home her symptoms continue. Her primary care physician ordered x-rays. X-rays demonstrated no acute fracture lesion or mass however the x-rays are not weight-bearing and there has no sunrise view we are going to get new x-rays today. I reviewed the x-rays in detail today with the patient agree with the above findings I suspect a lot of her pain is due to osteoarthritis particularly behind the kneecap. She comes in today for initial evaluation treatment. A new past medical history sheet was reviewed and signed on the intake sheet of today's date drug allergies current medications family social history previous surgical history 10 point review of systems was reviewed and discussed in detail today with the patient. MARIAM Montgomery [address], [place], [address], [place] 03/28/2024 11:26:11 4 text/html Patient returns I saw her a few days ago she had a right knee injection she has been having issues with both knees but the right knee was bothering her more. She has had previous viscosupplementation injections in both knees many years ago but that did not give her much relief she has never had cortisone. Her x-rays show mild primary osteoarthritis in the knees she states she got excellent relief from the injection in the right knee she was so pleased with it she decided to proceed with an injection left knee today. She comes back for another cortisone shot in the opposite knee. She is currently taking oral prednisone pills that were prescribed 4 days ago. She states her right knee is pain-free now. She has a little puffiness in left knee with aching pain through the arc of motion some tenderness on the medial joint line with subpatellar crepitation. MARIAM Montgomery [address], [place], [address], [place] 04/01/2024 14:20:55 4 text/html the patient returns for recheck of both knees. She had both knees injected with cortisone about 6 weeks ago. She states the pain is now like night and day difference. She has 0 to about a 1 on a scale of 1-10 where as previously it was much more intense. She works 12 hour shifts is on her feet quite a bit and this aggravates her knees a little bit. Recently she was doing lots of work going up and down some stairs and her right knee got a little puffy but overall is doing much better. Denies any effusion or swelling today states she really is pain-free and very happy with the results of the cortisone injections. She does have severe subpatellar crepitation that is audible in nature otherwise her x-rays do not show any severe arthritis only minor narrowing. There is some moderate lateral patellar tilt and mild lateral patellar subluxation in the right knee compared to the left and moderate narrowing of the lateral facet joints bilaterally. Medial compartments show some mild narrowing. MARIAM Montgomery [address], [place], [address], [place] 05/09/2024 10:34:44 4 text/html Patient returns with bilateral knee pain she has localized patellofemoral articular osteoarthritis bilaterally with significant audible crepitation through the arc of motion aching pain in the anterior knees. Shot of cortisone 3 months ago gave her pretty good relief for about 2-2-1/2 months recently her pain has returned. If she sits too long with her knees bent this aggravates her pain she has aching pain with squatting kneeling going up and down stairs despite conservative measures including naproxen 500 mg b.i.d. her symptoms continue she denies any new trauma or injury she would like both knees injected again today she has tried gel shots previously but thinks the cortisone works a little better for her. She is considering trying a different type of oral anti-inflammatory medication. MARIAM Montgomery [address], [place], [address], [place] 07/04/2024 09:13:08 4 text/html Patient returns for bilateral knee injections today. She has x-rays that show moderate primary osteoarthritis however her exam shows more significant findings. She has loud audible crepitation through the arc of motion positive patellofemoral compression test and pain with any manipulation range of motion particularly in the patellofemoral articulation. She has a lot of trouble with trying to stand up from a sitting position as it causes aching pain in her anterior knees she also states her knees feel little better when she gets moving around but she stands all day at work this also aggravates her knees. She denies any new problems with either knee states the last shots of cortisone did not really give her great relief she has tried gel shots previously did not think those worked very well either. We put her on Celebrex recently and also states this really did not give him much relief she would like to try something different. She comes in today for cortisone injections once again both knees. MARIAM Montgomery [address] [facility] [address], [place], [address], [place] [facility] 10/10/2024 09:39:09 OBGyn Episode No OBEpisode recorded.
--- OUTSIDE RECORDS SUMMARY | 2024-10-26 11:28 | XMS_ITS | Encounter Summary ---
Author Organization [facility] Address [address] [place] [address]. [place] [address] [place] [address] Care Team Providers Care Digital Imaging Technician Name Role Phone Unavailable Primary Care Provider Unavailabl e Encounter Details Date Type Department Care Team (Late st Contact Info) Description 07/30/2012 Abstract [facility] [address] [place] [address] Jefferson Chandler MD [address] [id number] Social History Tobacco Use Types Packs/Day Years Used Date Smoking Tobacco: Never Assessed Comments Unknown Sex and Gender Information Value Date Recorded Sex Assigned at Not on file Legal Sex Female 6:15 PM CDT Gender Identity Not on file Sexual Orientation Not on file documented as of this encounter Plan of Treatment Not on file documented as of this encounter Visit Diagnoses Diagnosis Hypothyroidism Unspecified hypothyroidism documented in this encounter
--- OUTSIDE RECORDS SUMMARY | 2024-10-26 11:28 | XMS_ITS | Encounter Summary ---
Author Organization [facility] Address [address] [facility] [place] [address] Care Team Providers Care Scraper Meat Name Role Phone Jefferson Chandler MD Primary Care Provider [phone] Reason for Visit * Reason Onset Date Comments Urine Check 08/12/2021 Encounter Details Date Type Department Care Team (Late st Contact Info) Description 08/12/2021 Telephone [facility] [address] [place] [address] Ronit Green MD [address] [place] [address] Urine Check Social History Tobacco Use Types Packs/Day Years Used Date Smoking Tobacco: Never Smokeless Tobacco: Never Alcohol Use Standard Drinks/Week Comments Not Currently 0 (1 standard drink = 0.6 oz pur e alcohol) once a year Sex and Gender Information Value Date Recorded Sex Assigned at Not on file Gender Identity Not on file Sexual Orientation Not on file documented as of this encounter Miscellaneous Notes * Telephone Encounter - Meeta Vicente RN - 08/12/2021 10:21 AM CDT Will use [facility] * Telephone Encounter - Kathya Kirkland - 08/12/2021 10:18 AM CDT Pt called stating she has a question for the nurse about a urine culture. Please advise. # [phone] documented in this encounter Plan of Treatment Not on file documented as of this encounter Visit Diagnoses Not on filedocumented in this encounter Care Teams Scraper Meat Relationship Specialty Start Date End Date Jefferson Chandler MD [address] [place] [address] PCP - General 07/17/09 documented as of this encounter
--- OUTSIDE RECORDS SUMMARY | 2024-10-26 11:28 | XMS_ITS | Continuity of Care Document ---
Author Organization [place] - [facility] [employer] [facility], [facility] Kelechi Stephens Address [address] [place] [address] Care Team Providers Care Log Sorting Supervisor Name Role Phone JOHN CHANDLER Primary Care Provider JOHN CHANDLER Referring Provider [phone] Assessment Encounter Date Assessment Date Assessment LastModified by Organization Details LastModified Time 10/10/2024 10/10/2024 The patient has moderately severe [...] DO Not Attach Compendium, Do Not Delete/merge, [id number] 10/10/2024 09:07:13 Surgeries None recorded. Imaging None recorded. Medication Orders bupivacai ne HCl 0.5 % (5 mg/mL) injection solution 2023 024 [id number], [id number], [address], 10/10/2024 09:45:35 Kenalog 10 mg/mL suspensio n for injection 2023 024 [id number], [id number], [address], 10/10/2024 09:45:35 diclofena c sodium 75 mg tablet,de layed release 2023 024 [id number], [id number], [address], 10/10/2024 09:45:35 Patient TargetsNo targets recorded. Patient InstructionsNo instructions recorded. Reason for Referral None Reported. Problems Name Problem SNOMED Code Status Onset Date Resolution Date Notes Provider Name and Address Organization Details Recorded Time Bilateral cramp of muscle of lower limbs 0402337872503 9107 Active 2021 Not Available [facility] 3 14:13:53 Senile osteoporos is 46686152 Active 2021 Not Available [facility] 3 14:13:53 Plantar fasciitis 112339628 Active Not Available [facility] 3 14:13:53 Restless legs 57485618 Active Not Available [facility] 3 14:13:53 Vitamin D deficiency 52913116 Active 2021 Not Available [facility] 3 14:13:53 Migraine 99380401 Active Not Available [facility] 3 14:13:53 Chronic sinusitis 83959844 Active Not Available [facility] 3 14:13:53 Hypothyroi dism 91722265 Active Not Available [facility] 3 14:13:53 Hyperlipid emia 69222076 Active 2020 Not Available [facility] 3 14:13:53 Fatigue 40679476 Active Not Available [facility] 3 14:13:54 Herniation of nucleus pulposus 99834509 Active Not Available [facility] 3 14:13:54 Obese class I 6575102142054 07 Active 2022 John Chandler MD [address], [place], [address] , [facility] 3 14:50:24 Acute urinary tract infection 354752701 Active 2022 John Chandler MD [address], [place], [address] , [facility] 3 17:02:14 Candidiasi s of vagina 73546284 Active 2022 John Chandler MD [address], [place], [address] , [facility] 3 14:08:19 Pharyngiti s 415718097 Active 2023 John Chandler MD [address], [place], [address] , [facility] 4 11:22:33 Acute sinusitis 11357892 Active 2023 Rasheeda Freire CMA null, [place] [facility] 4 14:50:51 Pain of right knee joint 2489687555766 00 Active 2023 Suzanne Pierce null, [place] [facility] 4 14:53:51 Osteoarthr itis of right knee joint 5535443781074 00 Active 2023 MARIAM Montgomery [address], [place], [address] , [facility] 4 11:22:31 Pain of left knee joint 0793480421304 07 Active 2023 Lilian EscaleraCARISSA robison null, [place] - [facility] 4 13:53:40 Bilateral osteoarthr itis of knees 0895992357454 07 Active 2023 MARIAM Montgomery [address], [place], [address] , [facility] 4 14:20:41 Motion sickness 19199029 Active 2023 John Chandler MD [address], [place], [address] , [facility] 4 11:44:04 Acute right otitis media 611328684 Active 2023 John Chandler MD [address], [place], [address] , [facility] 4 16:00:01 Problem Notes None recorded. Medical Equipment None Reported. [...] mg by injectio n route. [address] [facility]: [phone] 20 Not Available Not Available Not Available hydrocodo [...] administ ered by the provider 03/[address] [facility]: 0409-427 04-25 Not Available Not Available Not Available Monovisc 88 mg/4 mL intra-art icular syringe Injectio ns given in the office by the doctor 03/06 completed [facility]: [id number] 001 Not Available Not Available Not Available Uro-MP 118 mg-10 mg-40.8 mg-36 mg capsule TAKE 1 CAPSULE BY MOUTH EVERY 8 HOURS NEEDED (BLADDER PAIN) 03/06 completed Not Available Not Available Not Available Vitals Date Recorded Body height Provider Name an d Address Organization Details Last Updated DateTime 10/10/2024 172.72 cm Lizbeth Healy [place] [email or web address] 10/10/2024 09:05:21 Social History Question Answer Notes LastModified by Organizat ion Details LastModified Time Tobacco Smoking Status Never Smoker Not Available [facility] 01/07/2023 14:11:02 What Was The Date Of Your Most Recent Tobacco Screening? 02/27/2021 [id number] Information not available 01/07/2023 Sex: Unknown Functional Status None recorded. Mental Status None recorded. Family History Relationship Description Onset Age of this Age Resolved Age Notes LastModified by Organization Details LastModified Time Father Family history of malignant neoplasm [id number] Not available 01/07/2023 14:11:14 Notes:Mother living at 77 [facility] Father living 72 from Non- Hodgkin's lymphoma [...] HAVE YOU BEEN HOSPITALIZED OR SEEN IN [facility] ER IN THE PAST YEAR ? N ATHEROSCLEROSIS [...] virus, quadrivalent, PF 11/23/2018 completed Not Available [facility] 14:16:25 Tdap 11/23/2018 completed Not Available [facility] 01/07/2023 14:16:25 Past Encounters Encounter ID Performer Location Encounter Start Date Encounter Closed Date Diagnosis/Indication Diagnosis SNOMED-CT Code Diagnosis ICD10 Code [id number] MARIAM Montgomery [facility] Kele[facility] Stephens [address] [place] [address] 10/10/2024 09:03:09 10/10/2024 09:20:31 Bilateral osteoarthritis of knees 2721953501 85577 M17.0 Pain of ri ght knee joint 4751228490 66831 M25.561 Pain of le ft knee joint 1363265993 99648 M25.562 Health Concerns Section Related Observation LastModified by Organization Detai ls LastModified Time None Recorded Concern Status LastModified by Organization Details LastModified Time None Recorded Payers Encounter Date Sequence Insurance Name Policy Number Policy Ortiz Covered Member ID Ortiz Member ID Guarantor Name 10/10/2024 1 [employer] - CHOICE (POS II) [id number] Mike Das [id number] Meeta Das Notes Date Note Type Note Provider Name and Address Organization Details Recorded Time 10/10/2024 text/html Patient returns for bilateral knee injections [...] once again both knees. MARIAM Montgomery [address] [facility], [place], [address], [place] [facility] [email or web address] 10/10/2024 09:39:09 OBGyn Episode No OBEpisode recorded.
--- OUTSIDE RECORDS SUMMARY | 2024-10-26 11:28 | XMS_ITS | Encounter Summary ---
Author Organization [facility] Address [address] [place] [address] Care Team Providers Care Bank Vault Attendant Name Role Phone Jefferson Chandler MD Primary Care Provider [phone] Reason for Visit * Reason Comments Urinary frequency Encounter Details Date Type Department Care Team (Late st Contact Info) Description 08/26/2021 2:45 PM CDT Office Visit [facility] Obstetrics Gynecology and Women's Health [address] [place] [address] Ronit Green MD [address] [place] [address] History of UTI (Primary Dx); Vaginal atrophy; Chronic bladder pain; IC (interstitial cystitis) Social History Tobacco Use Types Packs/Day Years Used Date Smoking Tobacco: Never Smokeless Tobacco: Never Alcohol Use Standard Drinks/Week Comments Not Currently 0 (1 standard drink = 0.6 oz pur e alcohol) once a year Sex and Gender Information Value Date Recorded Sex Assigned at Not on file Gender Identity Not on file Sexual Orientation Not on file documented as of this encounter Last Filed Vital Signs Vital Sign Reading Time Taken Comments Blood Pressure 104/70 08/26/2021 2:41 PM CDT Pulse - - Temperature - - Respiratory Rate - - Oxygen Saturation - - Inhaled Oxygen Concentration - - Weight 91.6 kg (202 lb) 08/26/2021 2:41 PM CDT Height 172.7 cm (5' 8 ) 08/26/2021 2:41 PM CDT Body Mass Index 30.71 08/26/2021 2:41 PM CDT documented in this encounter Patient Instructions * Patient Instructions* Ronit Green MD - 08/26/2021 2:53 PM CDT Images from the original note were not included. Call or send a [employer] message if you think you have a UTI. Call if any problems or concerns at . You can also ask the radio intelligence operator to send me a message, and I or the nurses in Urogynecology Triage will respond when we can. If you need to send records or results to our office, our fax number is [phone]. Prelief - over the counter medication ICN sarabjit IC diet ICN sarabjit Prelief Stress management Pelvic floor physical therapy Azo or uribel - call if you would like a prescription of Uribel Bladder instillations if no improvement Cystoscopy with hydrodistension Use Zigswitchx, can look up online to find the best castro for the uribel medication documented in this encounter Progress Notes * Ronit Green MD - 08/26/2021 2:45 PM CDT Urogynecology and Pelvic Reconstructive Surgery Return Visit Referring Provider: Jefferson Chandler MD PCP: Jefferson Chandler MD Date of Visit: 08/26/2021 Date of Last Visit: 05/20/2021 Chief Complaint: Urinary frequency History of Present Illness: Meeta Das is a 56 year old female who presents today as a return visit. Urogynecologic history: 05/20/21 initial visit: Reports 4-5 UTIs per year for the past 4 years. Symptoms include back pain, vaginal pain with voiding, urinary frequency and urgency. Reports she had a cystoscopy in 2019 that was normal, went to . Sometimes feels like a tampon is falling out. Tried vaginal estrogen for 2 weeks that did not help from her energy conservation technician. MARLENA: Occurs a couple times a month. UUI: Occurs when she has a UTI or drinks a lot of water. voids every 2 hours, and awakens 0-1 timesper night to void. does wear a pad/liner. has post void dribbling. does have gross hematuria with a UTI only. does have a history of frequentUTI. has pressure/bulge symptoms. She has pressure with this. She describes it as a no bulge. She has not tried a pessary in the past. has 2 bowel movements per week. Fecal Incontinence: She has loss of stool unformed stool without her control. This occurs 1 times per 6 months. has incomplete rectal emptying. menopausal. does not have a history of abnormal Pap smears. Her last pap smear was on 2020 and was negative. She is not sexually active. , 1 forceps, 1 Exam: Neg CHEMICAL LABORATORY ASSISTANT, PVR 10 ml, Brinks 01/15, udip neg Vagina: Vaginal mucosa without lesions and with atrophy. POP-Q- Aa / Ba / C: - Gh / pb / tvl: 12/11/09 Ap / Bp / D: - History of UTI: reports frequent UTIs but no urine culture records for review today. Discussed needfor urine cultures. > plan to track urine cultures, she will call when she has UTI symptoms > start vaginal estrogen > discussed optional supplements of cranberry tablets, probiotics, D-mannose > encouraged at least 1.5 L of water per day Vaginal atrophy: vaginal estrogen 08/12/21 urine culture: no growth ?? Interval History: Reports she had 2 episodes where she felt like she had an infection. Drank a lot of water and the symptoms went away. Reports symptoms are worse when drinking soda and stop when sheonly drinks water. Had a negative culture. Past Medical History: Diagnosis Date ??? Bladder infection ??? Migraines ??? Thyroid disease Past Surgical History: Procedure Laterality Date ??? Back Surgery ??? Tonsillectomy Current Outpatient Medications on File Prior to Visit Medication Sig Dispense Refill ??? DICLOFENAC SODIUM PO Take 75 mg by mouth 2 times daily ??? eletriptan (RELPAX) 40 MG tablet Take 40 mg by mouth daily as needed - may repeat one time for Migraine No more than two doses may be taken in 24 hours. ??? estradiol (ESTRACE) 0.1 MG/GM vaginal cream Insert 1g into the vagina nightly for 2 weeks. Theninsert 1g into the vagina two times a week thereafter. 1 tube 3 ??? levothyroxine (SYNTHROID) 112 MCG tablet Take 112 mcg by mouth daily before breakfast ??? LORazepam (ATIVAN) 1 MG tablet Take 1 mg by mouth once daily No current facility-administered medications on file prior to visit. Allergies: Patient has No Known Allergies. Physical Exam: BP 104/70 Ht 5' 8 Wt 202 lb BMI 30.71 kg/m2 Constitutional: General appearance: Well nourished, well developed female in no acute distress. Neuro: Normal mood and affect. Neck: Supple, normal appearance. Respiratory: Normal respiratory effort. Cardiovascular: No lower extremity edema. Skin: Warm and dry. Assessment: Ms. Das is a 56 year old with: ICD-10-CM 1. History of UTI Z87.440 2. Vaginal atrophy N95.2 3. Chronic bladder pain R39.82 4. IC (interstitial cystitis) N30.10 Plan: History of UTI: reports frequent UTIs but no urine culture records for review today. Discussed needfor urine cultures. > plan to track urine cultures, she will call when she has UTI symptoms. She would like the urine culture order sent to [facility]. . . > vaginal estrogen - continue > discussed optional supplements of cranberry tablets, probiotics, D-mannose > encouraged at least 1.5 L of water per day Vaginal atrophy: vaginal estrogen Bladder Pain: We discussed bladder pain and she was given information regarding bladder pain syndrome. I reviewed with the patient methods to manage her bladder pain such as altering her diet to avoid irritative beverages and foods as well as attempting to decrease stress and other exacerbating factors. She may use Azo-standard or similar over the counter medication for pain relief as well as needed. IC diet - stop soda ICN sarabjit Prelief Stress management Pelvic floor physical therapy Azo or uribel - prescription for uribel, discussed r/b/a. Bladder instillations if no improvement Cystoscopy with hydrodistension if no improvement > 30 minutes spent on the visit: preparing for the visit, with the patient, counseling, orders, documentation documented in this encounter Plan of Treatment Not on file documented as of this encounter Visit Diagnoses Diagnosis History of UTI- Primary Personal history of urinary (tract) infection Vaginal atrophy Postmenopausal atrophic vaginitis Chronic bladder pain IC (interstitial cystitis) Chronic interstitial cystitis documented in this encounter Care Teams Bank Vault Attendant Relationship Specialty Start Date End Date Jefferson Chandler MD [address] [place] [address] PCP - General 07/17/09 documented as of this encounter
--- OUTSIDE RECORDS SUMMARY | 2024-10-26 11:28 | XMS_ITS | Encounter Summary ---
Author Organization [facility] Address [address] [facility] [place] [address] Care Team Providers Care Inspector Soldering Name Role Phone Jefferson Chandler MD Primary Care Provider [phone] Reason for Visit * Reason Onset Date Comments Request Lab Order 08/12/2021 Encounter Details Date Type Department Care Team (Late st Contact Info) Description 08/12/2021 Telephone [facility] Obstetrics Gynecology and Women's Health [address] [facility] [address] [place] [address] Ronit Green MD [address] [place] [address] Request Lab Order Social History Tobacco Use Types Packs/Day Years [...] Miscellaneous Notes * Telephone Encounter - Meeta Vicente, MANUEL - 08/12/2021 9:42 AM CDT Return call to patient Possible UTI. Symptoms She reports she called 10 days after her last visit but never heard from this office [facility] at [address] [place] [address] Fax Notified patient (left voice mail) no one answering at her requested lab so she is going to have tocall with a fax number so we can send an order Informed her we did place the electronic order for [facility] Not treating until Final Results are back * Telephone Encounter - Chucky Hutchison - 08/12/2021 9:24 AM CDT PT would like to have an order sent to [facility] in [place] so that She can leave a urine culture for Dr Aguilar PT CB# [phone] documented in this encounter Plan of Treatment Not on file documented as of this encounter Visit Diagnoses Not on filedocumented in this encounter Care Teams Inspector Soldering Relationship Specialty Start Date End Date Jefferson Chandler MD [address] [place] [address] PCP - General 07/17/09 documented as of this encounter
--- OUTSIDE RECORDS SUMMARY | 2024-10-26 11:28 | XMS_ITS | Encounter Summary ---
Author Organization [facility] Address [address] [place] [place] [address] Care Team Providers Care Body Maker Machine Setter Name Role Phone Jefferson Chandler MD Primary Care Provider [phone] Encounter Details Date Type Department Care Team (Latest Contact Info) Description 01/16/2015 [facility] - Orthopedics [address] [facility] [place] [address] Casey Patterson MD [address] [place] [address] Discharge Disposition: Home or Self Care Social History Tobacco Use Types Packs/Day Years Used Date Smoking Tobacco: Never Alcohol Use Standard Drinks/Week Comments No 0 (1 standard drink = 0.6 oz pur e alcohol) Sex and Gender Information Value Date Recorded Sex Assigned at Not on file Gender Identity Not on file Sexual Orientation Not on file documented as of this encounter Plan of Treatment Not on file documented as of this encounter Procedures Procedure Name Priority Date/Time Associated Diagnosis Comments XR LUMBAR SPINE 2 OR 3VW Routine 01/16/2015 9:38 AM CDT documented in this encounter Results * XR LUMBAR SPINE 2 OR 3VW (01/16/2015 9:38 AM CDT) Anatomical Region Laterality Modality Spine Other Impressions 01/16/2015 10:26 AM CDT Impression: Instrumented spinal fusion at L4-S1, unchanged in alignment. This report was electronically signed by PHI FERNÁNDEZ MD ??on 01/16/2015 10:26 AM . Narrative 01/16/2015 10:26 AM CDT Exam: ??XR SPINE LUMBAR 2 OR 3 VW Comparison: 02/21/11 History: ??lbp Findings: The patient is status post instrumented spinal fusion from L4-S1 with posterior parallel rods and pedicle screws, and intervertebral disc spacers. The hardware is intact and unchanged in configuration. There is mild disc space narrowing at L3- 4, progressed from the prior examination. The L1-2 and L2-3 disc spaces are normal. There is no acute fracture or subluxation. Procedure Note Phi Fernández MD - 02/06/2018 Exam: XR SPINE LUMBAR 2 OR 3 VW Comparison: 02/21/11 History: lbp Findings: The patient is status post instrumented spinal fusion from L4-S1 withposterior parallel rods and pedicle screws, and intervertebral discspacers. The hardware is intact and unchanged in configuration. There ismild disc space narrowing at L3- 4, progressed from the prior examination. The L1-2 and L2-3 disc spaces arenormal. There is no acute fracture or subluxation. IMPRESSION Impression: Instrumented spinal fusion at L4-S1, unchanged in alignment. This report was electronically signed by PHI FERNÁNDEZ MD on 01/16/201510:26 AM . Casey Patterson MD DIAGNOSTIC IMAGING O RDERABLES documented in this encounter Visit Diagnoses Diagnosis Low back pain Lumbago Other chronic pain documented in this encounter Care Teams Body Maker Machine Setter Relationship Specialty Start Date End Date Jefferson Chandler MD [address] [place] [phone] PCP - General 07/17/09 documented as of this encounter
--- OUTSIDE RECORDS SUMMARY | 2024-10-26 11:28 | XMS_ITS | Referral Summary ---
Author Organization [facility] Address [address] [place] [address] Care Team Providers Care Sales Development Executive Name Role Phone Jefferson Chandler MD Primary Care Provider [phone] Source Comments [facility],non-owned Affiliates and Associated Physician Practices is amultiple site organization consisting of ambulatory clinics and hospital sitesin [place], [place], [place] and [place]. This disclosure is being madepursuant to the Care Everywhere program and may not contain all information available regarding this patient. Last updated 18.[facility] Allergies No known active allergies Medications * Be aware that medications may not be up to date on this document. Alwaysverify current medications with the patient. Medication Sig Dispensed Refills Start Date End Date Status levothyroxine (SYNTHROID) 112 MCG tablet Take 112 mcg by mouth daily before breakfast Active LORazepam (ATIVAN) 1 MG tablet Take 1 mg by mouth once daily Active eletriptan (RELPAX) 40 MG tablet Take 40 mg by mouth daily as needed - may repeat one time for Migraine No more than two doses may be taken in 24 hours. Active DICLOFENAC SODIUM PO Take 75 mg by mouth 2 times daily Active estradiol (ESTRACE) 0.1 MG/GM vaginal cream Insert 1g into the vagina nightly for 2 weeks. Then insert 1g into the vagina two times a week thereafter. 1 tube 3 05/20/2021 Active Meth-Hyo-M Bl-Na Phos-Ph Jonathan (URIBEL) 118 MG Take 1 (one) capsule by mouth every 8 hours as needed (bladder pain) 30 capsule 11 08/26/2021 Active Active Problems Problem Noted Date Diagnosed Date Chronic sinusitis 05/26/2021 Fatigue 05/26/2021 Herniation of nucleus pulposus 05/26/2021 Hypothyroidism 05/26/2021 Migraine 05/26/2021 Plantar fasciitis 05/26/2021 Restless legs 05/26/2021 Hyperlipidemia 02/04/2021 Arthrodesis status 01/25/2015 S/P lumbar fusion 01/25/2015 Social History Tobacco Use Types Packs/Day Years Used Date Smoking Tobacco: Never Smokeless Tobacco: Never Alcohol Use Standard Drinks/Week Comments Not Currently 0 (1 standard drink = 0.6 oz pur e alcohol) once a year Sex and Gender Information Value Date Recorded Sex Assigned at Not on file Gender Identity Not on file Sexual Orientation Not on file Last Filed Vital Signs Vital Sign Reading Time Taken Comments Blood Pressure 104/70 08/26/2021 2:41 PM CDT Pulse - - Temperature - - Respiratory Rate - - Oxygen Saturation - - Inhaled Oxygen Concentration - - Weight 91.6 kg (202 lb) 08/26/2021 2:41 PM CDT Height 172.7 cm (5' 8 ) 08/26/2021 2:41 PM CDT Body Mass Index 30.71 08/26/2021 2:41 PM CDT Plan of Treatment Not on file Care Teams Sales Development Executive Relationship Specialty Start Date End Date Jefferson Chandler MD [address] [place] [address] [address] [place] [address] PCP - General 07/17/09
--- OUTSIDE RECORDS SUMMARY | 2024-10-26 11:28 | XMS_ITS | Encounter Summary ---
Author Organization [facility] Address [address] [place] [address] Care Team Providers Care Mower Mechanic Name Role Phone Jefferson Chandler MD Primary Care Provider [phone] Reason for Visit * Reason Onset Date Comments Request Lab Order 05/29/2021 Encounter Details Date Type Department Care Team (Late st Contact Info) Description 05/29/2021 Telephone [facility] [address] [place] [address] Ronit Green MD [address] [place] [address] Request Lab Order Social History [...] Encounter - Meeta Vicente RN - 08/12/2021 9:53 AM CDT Call never routed * Telephone Encounter - Orly Singleton - 05/31/2021 10:25 AM CDT PT following up animation camera operator CB# [phone] * Telephone Encounter - Marcy Perez - 05/29/2021 12:35 PM CDT Patient called in requested an order for a UA to be sent over to [facility] [phone] documented in this encounter Plan of Treatment Not on file documented as of this encounter Visit Diagnoses Not on filedocumented in this encounter Care Teams Mower Mechanic Relationship Specialty Start Date End Date Jefferson Chandler MD [address] [place] [address] PCP - General 07/17/09 documented as of this encounter
--- OUTSIDE RECORDS SUMMARY | 2024-10-26 11:28 | XMS_ITS | Encounter Summary ---
Author Organization [facility] Address [address] [facility] [place] [address] Care Team Providers Care Packer Insulation Name Role Phone Jefferson Chandler MD Primary Care Provider [phone] Reason for Visit * Reason Comments Recurrent UTI Encounter Details Date Type Department Care Team (Late st Contact Info) Description 05/20/2021 3:00 PM CDT Office Visit [facility] Obstetrics Gynecology and Women's Health [address] [facility] [address] [place] [address] Ronit Green MD [address] [place] [address] History of UTI (Primary Dx); Vaginal atrophy Social History Tobacco Use Types Packs/Day Years [...] Sign Reading Time Taken Comments Blood Pressure 130/86 05/20/2021 2:54 PM CDT Pulse - - Temperature - - Respiratory Rate - - Oxygen Saturation - - Inhaled Oxygen Concentration - - Weight 87.3 kg (192 lb 6.4 oz) 05/20/2021 2:54 P M CDT Height 172.7 cm (5' 8 ) 05/20/2021 2:54 PM CDT Body Mass Index 29.25 05/20/2021 2:54 PM CDT documented in this encounter Patient Instructions * Patient Instructions* Ronit Green MD - 05/20/2021 4:23 PM CDT Recurrent Urinary Tract Infection (UTI) For treatment of recurrent urinary tract infections, we reviewed several options and recommend: Vaginal estrogen cream in the vagina 2 times per week Other optional kokc-[id number] supplements include: cranberry tablets or probiotics (such as D-mannose). If you think have symptoms of urinating frequently, foul smelling urine, pain or bleeding with urination, or lower pelvic pain and think that you have a urinary tract infection, please call our office to make arrangements for a urine culture to be collected. If you have a urine sent from another provider, please request forthem to fax the results to our office so we have a record. > drink at least 1.5 liters of water a day Call if any problems or concerns at . You can also ask the garnett machine operator helper to send me a message, and I or the nurses in Urogynecology Triage will respond when we can. If you need to send records or results to our office, our fax number is [phone]. documented in this encounter Progress Notes * Ronit Green MD - 05/20/2021 3:32 PM CDT Female Pelvic Medicine and Reconstructive Surgery New Patient Consultation Referring Provider: Jefferson Chandler MD [address] [place] [address] Primary Care Provider: Patient Care Team: Jefferson Chandler MD as PCP - General Date of Service: 05/20/2021 Chief Complaint: Recurrent UTI History of Present Illness: Ms. Meeta Das is a 55 year old female who presents in consultation atthe request of Dr. Chandler for evaluation. Reports 4-5 UTIs per year for the past 4 years. Symptoms include back pain, vaginal pain with voiding, urinary frequency and urgency. Reports she had a cystoscopy in 2019 that was normal, went to Dr. Murillo. Sometimes feels like a tampon is falling out. Tried vaginal estrogen for 2 weeks that did not help from her ob/gyn doctor. Urinary Leakage Symptoms: She reports urinary incontinence symptoms. Stress Symptoms: She does have stress incontinence. She has had loss of drops of urine with coughing, sneezing. Occurs a couple times a month. Urge Symptoms: She does have urge incontinence. Occurs when she has a UTI or drinks a lot of water. She voids every 2 hours, and awakens 0-1 times per night to void. Pad Use: She does wear a pad/liner. Severity: She describes these episodes of leakage as mild. Previous Treatment for UI: She has not been previously previously treated for her urinary complaints. Impact on QOL: She reports this significantly limits her quality of life. Duration: She reports that she has had the above symptoms for 3 years. It has not gotten worse. Bladder Emptying/Upper Urinary Tract Symptoms: Nocturia: At night she has nocturia 0 - 1 times per night. Voiding Dysfunction: She has post void dribbling. She denies dysuria, gross hematuria, post void fullness, hesitancy. Splinting: She does not need to splint to void. Kidney Stones: She does not have a history of kidney stones. Gross Hematuria: She does have gross hematuria with a UTI only. Frequent UTIs: She does have a history of frequent UTI. Bulge Symptoms: She has pressure/bulge symptoms. She has pressure with this. She describes it as a no bulge. She has not tried a pessary in the past. Bowel Symptoms: She has normal bowel movements. She has 2 bowel movements per week. Stool Consistency: formed stool Diarrhea: She does not have diarrhea. Constipation: She does not have constipation. Fecal Incontinence: She has loss of stool unformed stool without her control. This occurs 1 times per 6 months. Splinting: She does not have the need to splint to have a BM. Emptying: She has incomplete rectal emptying. In terms of exercise, she states she is not active. Review of Systems: Constitutional: Negative Eyes: Negative Ears, nose, mouth, throat, and face: Negative Respiratory: Negative Cardiovascular: Negative Gastrointestinal: Negative Genitourinary:Frequency, Dysuria and Incontinence Integument/breast: Negative Hematologic/lymphatic: Negative Musculoskeletal: Negative Neurological: Negative Behavioral/Psych: Negative Endocrine: Negative Allergic/mmunologic: Negative Gynecologic History: She is menopausal. She does not have a history of abnormal Pap smears. Her last pap smear was on 2020 and was negative. She is not sexually active. , 1 forceps, 1 Past Medical History: Diagnosis Date ??? Bladder infection ??? Migraines ??? Thyroid disease Past Surgical History: Procedure Laterality Date ??? Back Surgery ??? Tonsillectomy Social History Socioeconomic History ??? Marital status: Spouse name: Not on file ??? Number of children: Not on file ??? Years of education: Not on file ??? Highest education level: Not on file Occupational History ??? Not on file Tobacco Use ??? Smoking status: Never Smoker ??? Smokeless tobacco: Never Used Vaping Use ??? Vaping Use: Never used Substance and Sexual Activity ??? Alcohol use: Not Currently Comment: once a year ??? Drug use: No ??? Sexual activity: Not Currently Partners: Male Other Topics Concern ??? Not on file Social History Narrative ??? Not on file Social Determinants of Health Financial Resource Strain: ??? Difficulty of Paying Living Expenses: Food Insecurity: ??? Worried About Running Out of Food in the Last Year: ??? Ran Out of Food in the Last Year: Transportation Needs: ??? Lack of Transportation (Medical): ??? Lack of Transportation (Non-Medical): Physical Activity: ??? Days of Exercise per Week: ??? Minutes of Exercise per Session: Stress: ??? Feeling of Stress : Social Connections: ??? Frequency of Communication with Friends and Family: ??? Frequency of Social Gatherings with Friends and Family: ??? Attends Protestant Services: ??? Active Member of Clubs or Organizations: ??? Attends Club or Organization Meetings: ??? Marital Status: Intimate Partner Violence: ??? Fear of Current or Ex-Partner: ??? Emotionally Abused: ??? Physically Abused: ??? Sexually Abused: Family History Problem Relation Name Age of Onset ??? None Known Mother ??? Cancer Father ??? None Known Sister ??? None Known Brother Current Outpatient Medications on File Prior to Visit Medication Sig Dispense Refill ??? DICLOFENAC SODIUM PO Take 75 mg by mouth 2 times daily ??? eletriptan (RELPAX) 40 MG tablet Take 40 mg by mouth daily as needed - may repeat one time for Migraine No more than two doses may be taken in 24 hours. ??? levothyroxine (SYNTHROID) 112 MCG tablet Take 112 mcg by mouth daily before breakfast ??? LORazepam (ATIVAN) 1 MG tablet Take 1 mg by mouth once daily No current facility-administered medications on file prior to visit. No Known Allergies PHYSICAL EXAMINATION: Vitals: 05/20/21 1454 BP: 130/86 Weight: 192 lb 6.4 oz Height: 5' 8 Negative cough stress test. Procedure note: Straight catheterization was performed after swabbing the urethra with betadine. A 14 Fr urethral catheter was inserted without difficulty and the bladder was drained for 10 mL. The patient tolerated the procedure well. Post Void Residual: The Postvoid Residual Volume (PVR) was 10 mL. Constitutional: General appearance: Well nourished, well developed female in no acute distress. Neuro: Normal mood and affect. Neck: Supple, normal appearance. Respiratory: Normal respiratory effort. Cardiovascular: No lower extremity edema. Skin: Warm and dry. Lymphatic: No inguinal lymphadenopathy. Gastrointestinal: No masses. No abdominal tenderness. No hernias. No hepatosplenomegaly. Detailed Urogynecologic Evaluation: Pelvic Exam performed in the dorsal lithotomy position: External: Normal external female genitalia Vagina: Vaginal mucosa without lesions and with atrophy. Bladder base - within normal limits Urethra: within normal limits, Urethral meatus within normal limits, no urethral masses or discharge. Urethrovesical junction hypermobility - Yes Cervix: normal appearance. Uterus: within normal limits Adnexa: No mass, fullness, tenderness. Anus / Perineum: WNL Rectovaginal: Rectal - no masses, no tenderness Anal sphincter by palpation - normal resting tone, normal voluntary squeeze Pelvic Floor Muscles: normal tone Brink Pelvic Muscle Rating Scale: Pressure: 1 0) No response 1) Weak squeeze 2) Moderate squeeze 3) Strong squeeze Displacement: 1 0) None 1) Finger moves anteriorly 2) Whole finger moves anteriorly 3) Whole finger gripped and pulled in Duration: 1 0) None 1) < 1 second 2) 1-3 seconds 3) > 3 seconds POP-Q: Performed in the dorsal lithotomy position Vaginal/Pelvic floor support: POP-Q- Aa / Ba / C: -3/-3/-7 Gh / pb / tvl: 12/11/09 Ap / Bp / D: -3/-3/-9 Laboratory Results: Urine dipstick: shawn est- negative, nitrates- negative, blood- negative, protein- negative Assessment: Ms. Das is a 55 year old with: ICD-10-CM 1. History of UTI Z87.440 URINALYSIS AUTO - POINT OF CARE (AMB) [facility] 2. Vaginal atrophy N95.2 Plan: History of UTI: reports frequent UTIs but no urine culture records for review today. Discussed needfor urine cultures. > plan to track urine cultures, she will call when she has UTI symptoms > start vaginal estrogen > discussed optional supplements of cranberry tablets, probiotics, D-mannose > encouraged at least 1.5 L of water per day Vaginal atrophy: We discussed that vaginal atrophy occurs due to the lack of estrogen in the genitourinary tract. I recommend low-dose vaginal estrogen topical use 2 times weekly for treatment of atrophy to help the vaginal tissues. We discussed that the dose when applied vaginally at this frequency is very low and, thus, will have low systemic absorption. It is rare to have systemic estrogen side effects. A prescription for vaginal estrogen was sent to the patient's pharmacy. Coding Rationale New or est? New Patient Highest problem complexity: 1 or more chronic illnesses with exacerbation, progression, or side effects of treatment Highest level of risk: Moderate Suggested code: 46281 documented in this encounter Procedure Notes * Ronit Green MD - 05/26/2021 1:14 PM CDTAssociated Order(s): PROC BLADDER CATHETERIZATION Procedure(s): MO INSERT NON-INDWELLING BLADDER Pre-Procedure Diagnose(s): History of UTI Post-Procedure Diagnose(s): History of UTI Procedure note: Straight catheterization was performed after swabbing the urethra with betadine. A 14 Fr urethral catheter was inserted without difficulty and the bladder was drained for 10 mL. The patient tolerated the procedure well. documented in this encounter Plan of Treatment Not on file documented as of this encounter Procedures Procedure Name Priority Date/Time Associated Diagnosis Comments MO INSERT NON-INDWELLING BLADDER Routine 05/26/2021 1:14 PM CDT History of UTI URINALYSIS AUTO - POINT OF CARE (AMB) [facility] Routine 05/20/2021 4:13 PM CDT History of UTI documented in this encounter Results * MO INSERT NON-INDWELLING BLADDER (05/26/2021 1:14 PM CDT) Narrative Ronit Green MD - 05/26/2021 1:14 PM CDT Ronit Green MD ? 05/26/2021 ??1:21 PM Procedure note: Straight catheterization was performed after swabbing the urethra with betadine. A 14 Fr urethral catheter was inserted without difficulty and the bladder was drained for 10 mL. The patient tolerated the procedure well. ?? Ronit Green MD PROCEDURE/MINOR PATY GICAL ORDERABLES * URINALYSIS AUTO - POINT OF CARE (AMB) [facility] (05/20/2021 4:13 PM CDT) Glucose UA neg Bilirubin UA POCT neg Ketones UA POCT neg Specific [place] UA 1.015 Blood Urine POCT neg pH UA 5.5 Protein UA neg Urobilinogen UA neg Nitrite UA neg WBC UA neg Urine URINE / Unknown 05/20/2021 4 :13 PM CDT Ronit Green MD LAB - POINT OF CARE ORDERABLES documented in this encounter Visit Diagnoses Diagnosis History of UTI- Primary Personal history of urinary (tract) infection Vaginal atrophy Postmenopausal atrophic vaginitis documented in this encounter Care Teams Packer Insulation Relationship Specialty Start Date End Date Jefferson Chandler MD [facility] [address] PCP - General 07/17/09 documented as of this encounter
--- OUTSIDE RECORDS SUMMARY | 2024-10-26 11:28 | XMS_ITS | Encounter Summary ---
Author Organization [facility] Address [address] [place] [address]. [place] [address] [place] [address] Care Team Providers Care C Application Developer Name Role Phone Unavailable Primary Care Provider Unavailabl e Encounter Details Date Type Department Care Team (Late st Contact Info) Description 07/16/2010 Abstract [facility] CONVERSION [address] [place] [address] Jefferson Chandler MD [address] [address] Social History Tobacco Use Types Packs/Day Years [...]
--- OUTSIDE RECORDS SUMMARY | 2024-10-26 11:28 | XMS_ITS | Patient Health Summary ---
Author Organization [facility] [employer] Address [address] [address] Care Team Providers Care Dispensing Optician Apprentice Name Role Phone Jefferson Chandler MD Primary Care Provider [phone] Note from [facility],non-owned Affiliates and Associated Physician Practices is amultiple site organization consisting of ambulatory clinics and hospital sitesin [place], [place], [place] and [place]. This disclosure is being madepursuant to the Care Everywhere program and may not contain all information available regarding this patient. Last updated 18.[facility] [employer] Allergies No known active allergies Medications * Be aware that medications may not be up to date on this document. Alwaysverify current medications with the patient. * levothyroxine (SYNTHROID) 112 MCG tablet Take 112 mcg by mouth daily before breakfast * LORazepam (ATIVAN) 1 MG tablet Take 1 mg by mouth once daily * eletriptan (RELPAX) 40 MG tablet Take 40 mg by mouth daily as needed - may repeat one time for Migraine No more than two doses may be taken in 24 hours. * DICLOFENAC SODIUM PO Take 75 mg by mouth 2 times daily * estradiol (ESTRACE) 0.1 MG/GM vaginal cream(Started 05/20/2021) Insert 1g into the vagina nightly for 2 weeks. Then insert 1g into the vagina two times a week thereafter. 3 refills by 05/20/2022 * Meth-Hyo-M Bl-Na Phos-Ph Jonathan (URIBEL) 118 MG(Started 08/26/2021) Take 1 (one) capsule by mouth every 8 hours as needed (bladder pain) 11 refills by 08/26/2022 Active Problems Problem Noted Date Diagnosed Date [...] Mass Index 30.71 08/26/2021 2:41 PM CDT Procedures * CULTURE URINE(Performed 08/12/2021) Performed for Acute cystitis without hematuria * [place] INSERT NON-INDWELLING BLADDER(Performed 05/26/2021) Performed for History of UTI * URINALYSIS AUTO - POINT OF CARE (AMB) [facility](Performed 05/20/2021) Performed for History of UTI * XR LUMBAR SPINE 2 OR 3VW(Performed 01/16/2015) * PATHOLOGY REPORTS - [facility] HISTORICAL(Performed 01/11/2010) * LAB MICROBIOLOGY - [facility] HISTORICAL(Performed 12/28/2009) Results * CULTURE URINE (08/12/2021 12:24 PM CDT) Culture [facility] Comment: ??CULTURE, URINE, ROUTINE ?Micro Number: ?[id number] ??Test Status: ? Final ??Specimen Source: ?? Urine, clean catch ??Specimen Quality: ??Adequate ??Result: ?No Growth REPORT COMMENT: FASTING:NO Test Performed at: [facility] ??[id number] STONEY SHARMA MD Urine URINE SPECIMEN OBTAINED BY CLEAN CATCH PROCEDURE / Unknown 08/12/2021 12:24 PM CDT 08/12/2021 12:29 PM CDT Ronit Green MD LAB - MICROBIOLOGY ORDERABLES [address] [address] * VT INSERT NON-INDWELLING BLADDER (05/26/2021 1:14 PM CDT) [...] POCT neg Ketones UA POCT neg Specific [place] UA 1.015 Blood Urine POCT neg pH UA 5.5 Protein UA neg Urobilinogen UA neg Nitrite UA neg WBC UA neg Urine URINE / Unknown 05/20/2021 4 :13 PM CDT Ronit Green MD LAB - POINT OF CARE ORDERABLES * XR LUMBAR SPINE 2 OR 3VW [...] Casey Patterson MD DIAGNOSTIC IMAGING O RDERABLES * PATHOLOGY REPORTS - [facility] HISTORICAL (01/11/2010 3:56 PM DOUBLE END TENONER SETTER) 01/11/2010 3:56 PM DOUBLE END TENONER SETTER Narrative [facility] - 01/11/2010 3:56 PM DOUBLE END TENONER SETTER Casey Patterson MD LAB - PATHOLOGY/CYTO LOGY ORDERABLES [facility] * LAB MICROBIOLOGY - [facility] HISTORICAL (12/28/2009 5:02 AM DOUBLE END TENONER SETTER) 12/28/2009 5:0 2 AM DOUBLE END TENONER SETTER Narrative [facility] - 12/28/2009 5:02 AM DOUBLE END TENONER SETTER Casey Patterson MD LAB - MICROBIOLOGY O RDERABLES [facility] Care Teams Dispensing Optician Apprentice Relationship Specialty Start Date End Date Jefferson Chandler MD [address] [place] [address] PCP - General 07/17/09
--- OUTSIDE RECORDS SUMMARY | 2024-10-26 11:28 | XMS_ITS | Encounter Summary ---
Author Organization [facility] Address [address] [place] [address] Care Team Providers Care Tree Fruit And Nut Farming Supervisor Name Role Phone Jefferson Chandler MD Primary Care Provider [phone] Encounter Details Date Type Department Care Team (Late st Contact Info) Description 08/12/2021 Orders Only [facility] [address] [facility] [address] [place] [address] Ronit Green MD [address] [place] [id number] Acute cystitis without hematuria Social History Tobacco Use Types Packs/Day Years [...] as of this encounter Visit Diagnoses Diagnosis Acute cystitis without hematuria- Primary Acute cystitis documented in this encounter Care Teams Tree Fruit And Nut Farming Supervisor Relationship Specialty Start Date End Date Jefferson Chandler MD [address] [place] [address] [address] [place] [id number] PCP - General 07/17/09 documented as of this encounter
--- OUTSIDE RECORDS SUMMARY | 2024-10-26 11:28 | XMS_ITS | Encounter Summary ---
Author Organization [facility] Address [address] [facility] [place] [address] Care Team Providers Care Thresher Broomcorn Name Role Phone Jefferson Chandler MD Primary Care Provider [phone] Encounter Details Date Type Department Care Team (Late st Contact Info) Description 08/12/2021 Orders Only [facility] [address] [facility] [address] [place] [address] Ronit Green MD [address] [place] [address] Acute cystitis without hematuria Social History Tobacco [...] on file documented as of this encounter Progress Notes * Meeta Vicente RN - 08/12/2021 10:23 AM CDT Kelechi [facility], not [facility] documented in this encounter Plan of Treatment Not on file documented as of this encounter Procedures Procedure Name Priority Date/Time Associated Diagnosis Comments CULTURE URINE Routine 08/12/2021 12:24 PM CDT Acute cystitis without hematuria documented in this encounter Results * CULTURE URINE (08/12/2021 12:24 PM CDT) Culture [facility] Comment: ??CULTURE, URINE, ROUTINE ?Micro Number: ?[id number] ??Test Status: ? Final ??Specimen Source: ?? Urine, clean catch ??Specimen Quality: ??Adequate ??Result: ?No Growth REPORT COMMENT: FASTING:NO Test Performed at: [facility] ??[id number] STONEY SHARMA MD Urine URINE SPECIMEN OBTAINED BY CLEAN CATCH PROCEDURE / Unknown 08/12/2021 12:24 PM CDT 08/12/2021 12:29 PM CDT Ronit Green MD LAB - MICROBIOLOGY ORDERABLES Performing Organization Address [facility]/State/[facility] Co de Phone Number [address] [address] documented in this encounter Visit Diagnoses Diagnosis Acute cystitis without hematuria- Primary Acute cystitis documented in this encounter Care Teams Thresher Broomcorn Relationship Specialty Start Date End Date Jefferson Chandler MD [address] [place] [address] [address] [place] [address] PCP - General 07/17/09 documented as of this encounter
--- OUTSIDE RECORDS SUMMARY | 2024-10-26 11:28 | XMS_ITS | Clinical Summary ---
Author Organization [facility] Address [address] [place] [address]. [place] [address] [place] [address] Care Team Providers Care Aws Solution Architect Name Role Phone Unavailable Primary Care Provider Unavailabl e Social History Tobacco Use Types Packs/Day Years Used Date Smoking Tobacco: Never Assessed Comments Unknown Sex and Gender Information Value Date Recorded Sex Assigned at Not on file Legal Sex Female 6:15 PM CDT Gender Identity Not on file Sexual Orientation Not on file Plan of Treatment Health Maintenance Due Date Last Done Comments Cervical Cancer Screening Pa p Smear (Age 30 to 64) Every 3 Years 1966 Colorectal Cancer Screening Colonoscopy (10 Years) 1966 Annual Physical 1969 Hepatitis C 1984 DTaP, Tdap and Td Vaccines ( 1 - Tdap) 1985 Hepatitis B Vaccines (1 of 3 - 19+ 3-dose series) 1985 Cervical Cancer Screening Pa p with HPV Testing (Age 30 to 64) Every 5 Years 1996 Cervical Cancer Screening with HPV 1996 Mammogram Screening 2006 Zoster Vaccines (1 of 2) 2016 COVID-19 Vaccine (2023-2 5 season) 2024 Influenza Adult (#1) 2024 Meningococcal Vaccine Aged Out No amee tres eligible based on patient's age to complete this topic Pneumococcal Vaccine: Pediat rics (0 to 5 Years) and At-Risk Patients (6 to 64 Years) Aged Out No longer eligible b ased on patient's age to complete this topic RSV Immunizations Under 20 Months Aged Out No longer eligible based on patient's age to complete this topic
--- OUTSIDE RECORDS SUMMARY | 2024-10-26 11:28 | XMS_ITS | Clinical Summary ---
Author Organization [facility] [employer] Address [address] [place] [address] Care Team Providers Care Driller Machine Name Role Phone Jefferson Chandler MD Primary Care Provider [phone] Source Comments [facility] [employer] [employer],non-owned Affiliates and Associated Physician Practices is amultiple site organization consisting of ambulatory clinics and hospital sitesin [place], [place], [place] and [place]. This disclosure is being madepursuant to the Care Everywhere program and may not contain all information available regarding this patient. Last updated 18.[facility] [employer] [employer] Allergies No known active allergies Medications * [...] Arthrodesis status 01/25/2015 S/P lumbar fusion 01/25/2015 Family History Medical History Relation Name Comments None Known Brother Cancer Father None Known Mother None Known Sister Relation Name Status Comments Brother Father Other non-Hodgkin's L ymphoma Cancer Mother Sister Social History Tobacco Use Types Packs/Day Years [...] 08/26/2021 2:41 PM CDT Plan of Treatment Health Maintenance Due Date Last Done Comments COLOGUARD (AGES 45-75) - COL ON CA SCREENING 1966 COLON MONITORING 1966 COLONOSCOPY - COLON CA SCREENING 1966 CT COLONOGRAPHY - COLON CA SCREENING 1966 Colorectal Cancer Screening 1966 FIT - COLON CA SCREENING 1966 FLEX SIG - COLON CA SCREENING 1966 LIPID TESTING 1966 MAMMOGRAM 1966 PAP SMEAR 1966 HIV SCREENING 1981 HEPATITIS C SCREENING 06/21/1984 DTAP/TDAP/TD VACCINES (1 - Tdap) 1985 HEPATITIS B VACCINE (1 of 3 - 19+ 3-dose series) 1985 ZOSTER VACCINE (1 of 2) 2016 SCREENING FOR DIABETES 05/20/2021 DEPRESSION SCREENING 11/09/2023 COVID-19 VACCINE (1 - 2024-2 5 season) 2024 INFLUENZA VACCINE (#1) 2024 11/23/2018 HIB VACCINE Aged Out No longer eligi ble based on patient's age to complete this topic HPV VACCINE Aged Out No longer eligi ble based on patient's age to complete this topic MENINGOCOCCAL VACCINE Aged Out No amee tres eligible based on patient's age to complete this topic PNEUMOCOCCAL VACCINE Aged Out No long er eligible based on patient's age to complete this topic Care Teams Driller Machine Relationship Specialty Start Date End Date Jefferson Chandler MD [address] [place] [address] [address] [place] [address] PCP - General 07/17/09
--- OUTSIDE RECORDS SUMMARY | 2024-10-26 11:28 | XMS_ITS | Encounter Summary ---
Author Organization [facility] Address [address] [place] [address]. [place] [address] [place] [address] Care Team Providers Care Box Finisher Name Role Phone Unavailable Primary Care Provider Unavailabl e Encounter Details Date Type Department Care Team (Late st Contact Info) Description 06/18/2009 Abstract [facility] CONVERSION [address] [place] [address] Jefferson Chandler MD [address] [phone] Social History Tobacco Use Types [...]
--- OUTSIDE RECORDS SUMMARY | 2024-10-26 11:28 | XMS_ITS | Encounter Summary ---
Author Organization [facility] Address [address] [place] [address] Care Team Providers Care Knitter Machine Name Role Phone Jefferson Chandler MD Primary Care Provider [phone] Encounter Details Date Type Department Care Team (Latest Contact Info) Description 01/16/2015 Hospital Outpatient Visit [facility] - Orthopedics [address] [facility] [address] [place] [address] Casey Patterson MD [address] [place] [address] Discharge Disposition: Home or Self Care Social [...] on filedocumented in this encounter Care Teams Knitter Machine Relationship Specialty Start Date End Date Jefferson Cahndler MD [address] [place] [address] [address] [place] [address] PCP - General 07/17/09 documented as of this encounter
--- OUTSIDE RECORDS SUMMARY | 2024-10-26 11:28 | XMS_ITS | Encounter Summary ---
Author Organization [facility] Address [address] [place] [address]. [place] [address] [place] [address] Care Team Providers Care Wrist Closer Name Role Phone Unavailable Primary Care Provider Unavailabl e Encounter Details Date Type Department Care Team (Late st Contact Info) Description 08/11/2011 Abstract [facility] [address] [place] [address] Jefferson Chandler MD [address] [phone] Social History Tobacco Use Types Packs/Day Years [...]
--- OUTSIDE RECORDS SUMMARY | 2024-10-26 11:28 | XMS_ITS | Encounter Summary ---
Author Organization [facility] Address [address] [place] [address]. [place] [address] [place] [address] Care Team Providers Care Electrician Manager Name Role Phone Unavailable Primary Care Provider Unavailabl e Encounter Details Date Type Department Care Team (Late st Contact Info) Description 01/22/2016 Abstract [facility] [address] [place] [address] Jefferson Chandler MD [address] [place] [address] [phone] Social History Tobacco Use Types Packs/Day Years [...]
--- OUTSIDE RECORDS SUMMARY | 2024-10-26 11:28 | XMS_ITS | Encounter Summary ---
Author Organization [facility] Address [address] [place] [address]. [place] [address] [place] [address] Care Team Providers Care Security System Engineer Name Role Phone Unavailable Primary Care Provider Unavailabl e Encounter Details Date Type Department Care Team (Late st Contact Info) Description 03/19/2009 Abstract [facility] CONVERSION [address] [place] [address] Jefferson Chandler MD [address] [phone] Social History Tobacco Use Types [...]
== END 2024-10-22 12:49 | disposition home or self-care (01) ==
PROVIDERS: Emergency Provider Nurse Practitioner Family; PCP Internal Medicine
DX: J06.9 Acute upper respiratory infection, unspecified (principal); J02.9 Acute pharyngitis, unspecified; E03.9 Hypothyroidism, unspecified; Z86.16 Personal history of COVID-19
CPT/HCPCS: 87081; 87880; 99213; G0463